=== PATIENT | male | born 1935 | race Caucasian/White ===

== ENCOUNTER 2021-09-30 09:56 | Observation (INO) | payer OTHER ==
--- OUTSIDE RECORDS SUMMARY | 2021-09-30 10:03 | XMS REPORT | Continuity of Care Document ---
:1935 Author Organization [facility] t Address [address] [place] [address] [address] [place] [address] Care Team Providers Name Role Phone Cristobal GAFFNEY, A Primary Care Physician ALIA Attending Clinician Unavailable ALIA Attending Clinician Unavailable Evan JAIN Attending Clinician Unavailable Eavn Jain MD Attending Clinician DYLON Attending Clinician Unavailable Kathy CHANEY Attending Clinician Unavailable (Tech), Emg/Ncv Testing Attending Clinician Unavailable MICHELLE Attending Clinician Unavailable ANNE MARIE Attending Clinician Unavailable ROLDAN MARTINI Admitting Clinician Unavailable Evan JAIN Admitting Clinician Unavailable Payers Payer Name Policy Type Policy Number Effective Date Expiration Date S ramakrishna [employer] MANAGED [id number] 2021 MEDICARE PPO-LUIS ARMANDO 00:00:00 [employer] MEDICARE HMO [id number] 2021 POS PPO 00:00:00 Problems Condition Condition Condition Status Onset Resolution Last Treating Co mments Source Name Details Category Date Date Treatment Clinician Date Lumbar Lumbar Disease Active 2020-09 [facility] radiculopa radiculopa -17 it y of thy thy 00:00: [address] Branch Neuropathy Neuropathy Disease Active 2020-09 U nivers involving involving 1-17 [place] both [place] extremit[place] 00 Me dical s s Branch Bilateral Bilateral Disease Active 2020-09 Uni vers leg leg 0-08 ity of weakness weakness 00:00: [place] [address] Medical Branch 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 0-08 [place] pain [place] COVID-19 COVID-19 Disease Active 2020-09 Unive rs vaccine vaccine 0-08 ity of series series 00:00: [place] declined declined 00 Medica l by patient by patient Br anch Arthritis Arthritis Disease Active 2020-09 Uni vers (knees, (knees, 0-06 ity of lumbar lumbar 00:00: [place] spine) spine) 00 Medical Branch Abnormal Abnormal Disease Active Unive rs gallbladde gallbladde 7-04 it y of r r 00:00: [place] ultrasound ultrasound 00 Md dical Branch Abnormal Abnormal Disease Active Unive rs liver liver 7-04 ity of function function 00:00: [place] test test 00 Medical Branch Chronic Chronic Disease Active Univers liver liver 7-04 ity of disease disease 00:00: [place] per per 00 Medical ultrasound ultrasound Br anch Anemia Anemia Disease Active Univers 6-14 ity of 00:00: [place] [facility] 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, mellitus, 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 00:00: [place] [facility] Essential Essential Disease Active Uni vers hypertensi hypertensi 5-28 it y of on on 00:00: [place] [facility] Hyperchole Hyperchole Disease Active U nivers sterolemia sterolemia -28 it y of 00:00: [place] [facility] BPH BPH Disease Active Univers (benign (benign - ity of prostatic prostatic 00:00: [place] hyperplasi hyperplasi 00 Md dical a) a) Branch Tremor Tremor Disease Active Univers 5-28 ity of 00:00: [place] 00 Medical Branch Status Status Disease Active Univers post post 5-28 ity of single single 00:00: [place] vessel vessel 00 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 Carotid Carotid Disease Active Univers artery artery 5-28 ity of disease disease 00:00: [place] [facility] HARISH on HARISH on Disease Active Univers CPAP CPAP - ity of 00:00: [place] [facility] History of History of Disease Active U nivers lung lung 5-28 ity of cancer cancer 00:00: [place] [facility] Seasonal Seasonal Disease Active Unive rs allergies allergies 5-28 ity of 00:00: [place] 00 Medical Branch Hearing Hearing Disease Active Univers loss loss 5-28 ity of 00:00: Medical Branch CKD CKD Disease Active Univers (chronic (chronic 5-28 ity of kidney kidney 00:00: [place] disease) disease) 00 Medica l Branch Short-term Short-term Disease Active U nivers memory memory 5-28 ity of loss loss 00:00: Medical Branch Former Former Disease Active Univers smoker smoker 5-28 ity of 00:00: Medical Branch Allergies, Adverse Reactions, Alerts Allergy Allergy Status Severity Reaction(s) Onset Inactive Treating Comm ents Source Name Type Date Date Clinician NSAIDS Allergy Active High 2020-[address] [facility] [address] (NON-RAGHU 1-30 [facility]: Medical ANTI-INF 00 Center LAMMATOR Y DRUG) Nsaids Propensi Active Other - See 2015-09 [facility] (Non-Raghu ty to comments 2-26 on with ity o f roidal adverse 00:00: other [place] Anti-Inf reaction 00 medicatio Med ical lammator s ns Branch y Drug) NSAIDS Drug Active Other-Cmnt 2015-09 Univer s (NON-RAGHU Class 2-26 ity of ROIDAL 00:00: [place] ANTI-INF 00 Medical LAMMATOR Branch Y DRUG) Social History Social Habit Start Date Stop Date Quantity Comments Source Exposure to Not sure [facility] SARS-CoV-2 [facility] (event) [place] Alcohol intake 2021-08-13 2021-08-13 Lifetime University of 00:00:00 00:00:00 non-drinker [facility] (finding) [place] Tobacco use and 2021-02-21 2021-02-21 Never used Universit y of exposure 00:00:00 00:00:00 [facility] Sex Ass[birth year] At [birth year] Universit y of 00:00:00 00:00:00 [facility] Smoking Status Start Date Stop Date Source Former smoker 2021-02-21 00:00:00 2021-02-21 00:00:00 Universi ty of [place] [facility] Medications Ordered Filled Start Stop Current Ordering Indication Dosage Frequency Signature Comments Components Source Medication Medication Date Date Medication? Clinician (SIG) Name Name insulin 2020-09 Yes [id number] 2U inject Univ ers lispro, -21 2-10 Units ity of human, 00:00: under the [place] (HUMALOG 00 skin 3 Medical U-100 (three) Branch INSULIN) times 100 unit/mL daily injection before meals. ACCORDING TO SLIDING SCALE: If BS = 150 or lower, give No Insulin, 151 - 200, give 2 units, 201 - 250, give 4 units, 251 - 300, give 6 units, 301 - 350, give 8 units, 351 - 400, give 10 units, if over 400-->tereza johnson MD insulin 2020-09 Yes [id number] 2U inject Univ ers lispro, -21 2-10 Units ity of human, 00:00: under the [place] (HUMALOG 00 skin 3 Medical U-100 (three) Branch INSULIN) times 100 unit/mL daily injection before meals. ACCORDING TO SLIDING SCALE: If BS = 150 or lower, give No Insulin, 151 - 200, give 2 units, 201 - 250, give 4 units, 251 - 300, give 6 units, 301 - 350, give 8 units, 351 - 400, give 10 units, if over 400-->tereza johnson MD HUMALOG 2020-09- No Univers U-100 2-13 12-21 ity of INSULIN 100 00:00: 00:00 [place] unit/mL 00 :00 Medical solution Branch insulin 2020-09- No 2U inject 2 Unive rs lispro, 11-09 12-21 Units ity of human, 100 00:00: 00:00 [place] the [place] unit/mL 00 :00 skin. Medical injection Branch azithromyci Yes [id number] Take 500 Univers n 9-28 mg PO day ity of (ZITHROMAX) 00:00: 1, then [place] as 250 mg 00 250 mg Medical tablet daily days Branch 2 to 5. fluticasone Yes [id number] 2{spray Use 2 Univers propionate 9-28 } Sprays in ity of 50 00:00: each [place] mcg/actuati 00 nostril Medic al on nasal daily. Branch spray benzonatate Yes [id number] 100mg Take 1 Univers 100 mg 9-28 capsule by ity of capsule 00:00: mouth 3 [place] 00 (three) Medical times Branch daily as needed for Cough. azithromyci 2020-0 Yes [id number] Take 500 Univers n 9-28 mg PO day ity of (ZITHROMAX) 00:00: 1, then [place] as 250 mg 00 250 mg Medical tablet daily days Branch 2 to 5. fluticasone 2020-0 Yes [id number] 2{spray Use 2 Univers propionate 9-28 } Sprays in ity of 50 00:00: each [place] mcg/actuati 00 nostril Medic al on nasal daily. Branch spray benzonatate 2020-0 Yes [id number] 100mg Take 1 Univers 100 mg 9-28 capsule by ity of capsule 00:00: mouth 3 [place] 00 (three) Medical times Branch daily as needed for Cough. azithromyci 2020-0 Yes [id number] Take 500 Univers n 9-28 mg PO day ity of (ZITHROMAX) 00:00: 1, then [place] as 250 mg 00 250 mg Medical tablet daily days Branch 2 to 5. fluticasone 2020-0 Yes [id number] 2{spray Use 2 Univers propionate 9-28 } Sprays in ity of 50 00:00: each [place] mcg/actuati 00 nostril Medic al on nasal daily. Branch spray benzonatate 2020-0 Yes [id number] 100mg Take 1 Univers 100 mg 9-28 capsule by ity of capsule 00:00: mouth 3 [place] 00 (three) Medical times Branch daily as needed for Cough. azithromyci 2020-0 Yes [id number] Take 500 Univers n 9-28 mg PO day ity of (ZITHROMAX) 00:00: 1, then [place] as 250 mg 00 250 mg Medical tablet daily days Branch 2 to 5. fluticasone 2020-0 Yes [id number] 2{spray Use 2 Univers propionate 9-28 } Sprays in ity of 50 00:00: each [place] mcg/actuati 00 nostril Medic al on nasal daily. Branch spray benzonatate 2020-0 Yes [id number] 100mg Take 1 Univers 100 mg 9-28 capsule by ity of capsule 00:00: mouth 3 [place] 00 (three) Medical times Branch daily as needed for Cough. azithromyci 2020-0 Yes [id number] Take 500 Univers n 9-28 mg PO day ity of (ZITHROMAX) 00:00: 1, then [place] as 250 mg 00 250 mg Medical tablet daily days Branch 2 to 5. fluticasone 2020-0 Yes [id number] 2{spray Use 2 Univers propionate 9-28 } Sprays in ity of 50 00:00: each [place] mcg/actuati 00 nostril Medic al on nasal daily. Branch spray benzonatate 2020-0 Yes [id number] 100mg Take 1 Univers 100 mg 9-28 capsule by ity of capsule 00:00: mouth 3 [place] 00 (three) Medical times Branch daily as needed for Cough. azithromyci 2020-0 Yes [id number] Take 500 Univers n 9-28 mg PO day ity of (ZITHROMAX) 00:00: 1, then [place] as 250 mg 00 250 mg Medical tablet daily days Branch 2 to 5. fluticasone 2020-0 Yes [id number] 2{spray Use 2 Univers propionate 9-28 } Sprays in ity of 50 00:00: each [place] mcg/actuati 00 nostril Medic al on nasal daily. Branch spray benzonatate 2020-0 Yes [id number] 100mg Take 1 Univers 100 mg 9-28 capsule by ity of capsule 00:00: mouth 3 [place] 00 (three) Medical times Branch daily as needed for Cough. azithromyci 2020-0 Yes [id number] Take 500 Univers n 9-28 mg PO day ity of (ZITHROMAX) 00:00: 1, then [place] as 250 mg 00 250 mg Medical tablet daily days Branch 2 to 5. fluticasone 2020-0 Yes [id number] 2{spray Use 2 Univers propionate 9-28 } Sprays in ity of 50 00:00: each [place] mcg/actuati 00 nostril Medic al on nasal daily. Branch spray benzonatate 2020-0 Yes [id number] 100mg Take 1 Univers 100 mg 9-28 capsule by ity of capsule 00:00: mouth 3 [place] 00 (three) Medical times Branch daily as needed for Cough. ipratropium 2020-0 Yes [id number] 1{spray Use 1-2 Univers 21 mcg 9-02 } Sprays in ity of (0.03 %) 00:00: each [place] nasal spray 00 nostril Medic al every 12 Branch (twelve) hours as needed for Runny nose. ipratropium Yes [id number] 1{spray Use 1-2 Univers 21 mcg 9-02 } Sprays in ity of (0.03 %) 00:00: each [place] nasal spray 00 nostril Medic al every 12 Branch (twelve) hours as needed for Runny nose. ipratropium Yes [id number] 1{spray Use 1-2 Univers 21 mcg 9-02 } Sprays in ity of (0.03 %) 00:00: each [place] nasal spray 00 nostril Medic al every 12 Branch (twelve) hours as needed for Runny nose. ipratropium Yes [id number] 1{spray Use 1-2 Univers 21 mcg 9-02 } Sprays in ity of (0.03 %) 00:00: each [place] nasal spray 00 nostril Medic al every 12 Branch (twelve) hours as needed for Runny nose. ipratropium Yes [id number] 1{spray Use 1-2 Univers 21 mcg 9-02 } Sprays in ity of (0.03 %) 00:00: each [place] nasal spray 00 nostril Medic al every 12 Branch (twelve) hours as needed for Runny nose. ipratropium Yes [id number] 1{spray Use 1-2 Univers 21 mcg 9-02 } Sprays in ity of (0.03 %) 00:00: each [place] nasal spray 00 nostril Medic al every 12 Branch (twelve) hours as needed for Runny nose. ipratropium Yes [id number] 1{spray Use 1-2 Univers 21 mcg 9-02 } Sprays in ity of (0.03 %) 00:00: each [place] nasal spray 00 nostril Medic al every 12 Branch (twelve) hours as needed for Runny nose. MULTIVITAMI Yes 1{tbl} Take 1 [place] N 50 PLUS 7-14 tablet by ity o f ORAL 13:47: mouth [place] [address] daily. Medical Branch lisinopriL Yes 10mg Take 10 mg U nivers 10 mg 7-14 by mouth ity of tablet 13:47: daily. [address] JANUVIA 50 0 Yes 50mg Take 50 mg U nivers mg tablet 7-14 by mouth ity of 13:47: daily. [address] tamsulosin Yes 1{capsu Take 1 [place] 0.4 mg 24 7-14 le} capsule by ity of hr capsule 13:47: mouth 2 [place] (two) Medical times Branch daily. finasteride Yes 5mg Take 5 mg U nivers 5 mg tablet 7-14 by mouth ity of 13:47: daily. [address] ascorbic Yes 500mg Take 500 Univ ers acid, 7-14 mg by ity of vitamin C, 13:47: mouth [place] (VITAMIN C) 18 daily. Medica l 500 mg Branch tablet aspirin 325 Yes 325mg Take 325 U nivers mg tablet 7-14 mg by ity of 13:47: mouth [place] 18 daily. [facility] VITAMIN D3 Yes Take by Uni vers 10 mcg (400 7-14 mouth ity of unit) 13:47: daily. [address] Zinc 50 mg Yes Take by Uni vers Tab 7-14 mouth ity of 13:47: daily. [address] TURMERIC Yes 2000mg Take 2,000 U nivers ORAL 7-14 mg by ity of 13:47: mouth [place] 18 daily. [facility] Branch PROBIOTIC Yes Take by Univ ers ORAL 7-14 mouth ity of 13:47: daily. [address] PRESERVISIO Yes Take by Un [place] N AREDS-2 7-14 mouth ity of ORAL 13:47: daily. [address] MULTIVITAMI Yes 1{tbl} Take 1 Un [place] N 50 PLUS 7-14 tablet by ity o f ORAL 13:47: mouth [place] 18 daily. [facility] Branch lisinopriL Yes 10mg Take 10 mg U nivers 10 mg 7-14 by mouth ity of tablet 13:47: daily. [address] JANUVIA 50 Yes 50mg Take 50 mg U nivers mg tablet 7-14 by mouth ity of 13:47: daily. [address] tamsulosin Yes 1{capsu Take 1 [place] 0.4 mg 24 7-14 le} capsule by ity of hr capsule 13:47: mouth 2 [place] (two) Medical times Branch daily. finasteride Yes 5mg Take 5 mg U nivers 5 mg tablet 7-14 by mouth ity of 13:47: daily. [address] ascorbic Yes 500mg Take 500 Univ ers acid, 7-14 mg by ity of vitamin C, 13:47: mouth [place] (VITAMIN C) 18 daily. Medica l 500 mg Branch tablet aspirin 325 Yes 325mg Take 325 U nivers mg tablet 7-14 mg by ity of 13:47: mouth [place] 18 daily. [facility] Branch VITAMIN D3 Yes Take by Uni vers 10 mcg (400 7-14 mouth ity of unit) 13:47: daily. [address] Zinc 50 mg Yes Take by Uni vers Tab 7-14 mouth ity of 13:47: daily. [address] TURMERIC Yes 2000mg Take 2,000 U nivers ORAL 7-14 mg by ity of 13:47: mouth [place] 18 daily. [facility] PROBIOTIC Yes Take by Univ ers ORAL 7-14 mouth ity of 13:47: daily. [address] PRESERVISIO Yes Take by Un [place] N AREDS-2 7-14 mouth ity of ORAL 13:47: daily. [address] MULTIVITAMI Yes 1{tbl} Take 1 Un [place] N 50 PLUS 7-14 tablet by ity o f ORAL 13:47: mouth [place] 18 daily. [facility] lisinopriL Yes 10mg Take 10 mg U nivers 10 mg 7-14 by mouth ity of tablet 13:47: daily. [address] JANUVIA 50 Yes 50mg Take 50 mg U nivers mg tablet 7-14 by mouth ity of 13:47: daily. [address] tamsulosin Yes 1{capsu Take 1 [place] 0.4 mg 24 7-14 le} capsule by ity of hr capsule 13:47: mouth 2 [place] (two) Medical times Branch daily. finasteride Yes 5mg Take 5 mg U nivers 5 mg tablet 7-14 by mouth ity of 13:47: daily. [address] ascorbic Yes 500mg Take 500 Univ ers acid, 7-14 mg by ity of vitamin C, 13:47: mouth [place] (VITAMIN C) 18 daily. Medica l 500 mg Branch tablet aspirin 325 Yes 325mg Take 325 U nivers mg tablet 7-14 mg by ity of 13:47: mouth [place] 18 daily. [facility] Branch VITAMIN D3 Yes Take by Uni vers 10 mcg (400 7-14 mouth ity of unit) 13:47: daily. [facility] 18 [facility] Branch Zinc 50 mg Yes Take by Uni vers Tab 7-14 mouth ity of 13:47: daily. [address] Branch TURMERIC Yes 2000mg Take 2,000 U nivers ORAL 7-14 mg by ity of 13:47: mouth [place] 18 daily. [facility] Branch PROBIOTIC Yes Take by Univ ers ORAL 7-14 mouth ity of 13:47: daily. [address] PRESERVISIO Yes Take by Un [place] N AREDS-2 7-14 mouth ity of ORAL 13:47: daily. [address] MULTIVITAMI Yes 1{tbl} Take 1 Un [place] N 50 PLUS 7-14 tablet by ity o f ORAL 13:47: mouth [place] 18 daily. [facility] Branch lisinopriL Yes 10mg Take 10 mg U nivers 10 mg 7-14 by mouth ity of tablet 13:47: daily. [address] JANUVIA 50 Yes 50mg Take 50 mg U nivers mg tablet 7-14 by mouth ity of 13:47: daily. [address] tamsulosin Yes 1{capsu Take 1 [place] 0.4 mg 24 7-14 le} capsule by ity of hr capsule 13:47: mouth 2 [place] (two) Medical times Branch daily. finasteride Yes 5mg Take 5 mg U nivers 5 mg tablet 7-14 by mouth ity of 13:47: daily. [address] ascorbic Yes 500mg Take 500 Univ ers acid, 7-14 mg by ity of vitamin C, 13:47: mouth [place] (VITAMIN C) 18 daily. Medica l 500 mg Branch tablet aspirin 325 Yes 325mg Take 325 U nivers mg tablet 7-14 mg by ity of 13:47: mouth [place] 18 daily. Medical Branch VITAMIN D3 Yes Take by Uni vers 10 mcg (400 7-14 mouth ity of unit) 13:47: daily. [place] [address] Medical Branch Zinc 50 mg Yes Take by Uni vers Tab 7-14 mouth ity of 13:47: daily. [place] [address] Medical Branch TURMERIC Yes 2000mg Take 2,000 U nivers ORAL 7-14 mg by ity of 13:47: mouth [place] 18 daily. Medical Branch PROBIOTIC Yes Take by Univ ers ORAL 7-14 mouth ity of 13:47: daily. [place] [address] Medical Branch PRESERVISIO Yes Take by Un [place] N AREDS-2 7-14 mouth ity of ORAL 13:47: daily. [place] [address] Medical Branch MULTIVITAMI Yes 1{tbl} Take 1 Un [place] N 50 PLUS 7-14 tablet by ity o f ORAL 13:47: mouth [place] 18 daily. [facility] Branch lisinopriL Yes 10mg Take 10 mg U nivers 10 mg 7-14 by mouth ity of tablet 13:47: daily. [place] [address] Medical Branch JANUVIA 50 Yes 50mg Take 50 mg U nivers mg tablet 7-14 by mouth ity of 13:47: daily. [address] Branch tamsulosin Yes 1{capsu Take 1 [place] 0.4 mg 24 7-14 le} capsule by ity of hr capsule 13:47: mouth 2 [place] (two) Medical times Branch daily. finasteride Yes 5mg Take 5 mg U nivers 5 mg tablet 7-14 by mouth ity of 13:47: daily. [place] [address] Medical Branch ascorbic Yes 500mg Take 500 Univ ers acid, 7-14 mg by ity of vitamin C, 13:47: mouth [place] (VITAMIN C) 18 daily. Medica l 500 mg Branch tablet aspirin 325 Yes 325mg Take 325 U nivers mg tablet 7-14 mg by ity of 13:47: mouth [place] 18 daily. Medical Branch VITAMIN D3 Yes Take by Uni vers 10 mcg (400 7-14 mouth ity of unit) 13:47: daily. [facility] 18 [facility] Branch Zinc 50 mg Yes Take by Uni vers Tab 7-14 mouth ity of 13:47: daily. [address] Branch TURMERIC Yes 2000mg Take 2,000 U nivers ORAL 7-14 mg by ity of 13:47: mouth [place] 18 daily. Medical Branch PROBIOTIC Yes Take by Univ ers ORAL 7-14 mouth ity of 13:47: daily. [address] Branch PRESERVISIO Yes Take by Un [place] N AREDS-2 7-14 mouth ity of ORAL 13:47: daily. [address] Branch MULTIVITAMI Yes 1{tbl} Take 1 [place] N 50 PLUS 7-14 tablet by ity o f ORAL 13:47: mouth [place] 18 daily. [facility] Branch lisinopriL Yes 10mg Take 10 mg U nivers 10 mg 7-14 by mouth ity of tablet 13:47: daily. [address] JANUVIA 50 Yes 50mg Take 50 mg U nivers mg tablet 7-14 by mouth ity of 13:47: daily. [address] Branch tamsulosin Yes 1{capsu Take 1 [place] 0.4 mg 24 7-14 le} capsule by ity of hr capsule 13:47: mouth 2 [place] (two) Medical times Branch daily. finasteride Yes 5mg Take 5 mg U nivers 5 mg tablet 7-14 by mouth ity of 13:47: daily. [address] Branch ascorbic Yes 500mg Take 500 Univ ers acid, 7-14 mg by ity of vitamin C, 13:47: mouth [place] (VITAMIN C) 18 daily. Medica l 500 mg Branch tablet aspirin 325 Yes 325mg Take 325 U nivers mg tablet 7-14 mg by ity of 13:47: mouth [place] 18 daily. [facility] Branch VITAMIN D3 Yes Take by Uni vers 10 mcg (400 7-14 mouth ity of unit) 13:47: daily. [address] Branch Zinc 50 mg Yes Take by Uni vers Tab 7-14 mouth ity of 13:47: daily. [place] 18 Medical Branch TURMERIC Yes 2000mg Take 2,000 U nivers ORAL 7-14 mg by ity of 13:47: mouth [place] 18 daily. Medical Branch PROBIOTIC Yes Take by Univ ers ORAL 7-14 mouth ity of 13:47: daily. [place] [address] Medical Branch PRESERVISIO Yes Take by Un [place] N AREDS-2 7-14 mouth ity of ORAL 13:47: daily. [place] [address] Medical Branch MULTIVITAMI Yes 1{tbl} Take 1 [facility] [place] N 50 PLUS 7-14 tablet by ity o f ORAL 13:47: mouth [place] 18 daily. Medical Branch lisinopriL Yes 10mg Take 10 mg U nivers 10 mg 7-14 by mouth ity of tablet 13:47: daily. [place] [address] Medical Branch JANUVIA 50 Yes 50mg Take 50 mg U nivers mg tablet 7-14 by mouth ity of 13:47: daily. [place] [address] Medical Branch tamsulosin Yes 1{capsu Take 1 [place] 0.4 mg 24 7-14 le} capsule by ity of hr capsule 13:47: mouth 2 [place] (two) Medical times Branch daily. finasteride Yes 5mg Take 5 mg U nivers 5 mg tablet 7-14 by mouth ity of 13:47: daily. [address] Branch ascorbic Yes 500mg Take 500 Univ ers acid, 7-14 mg by ity of vitamin C, 13:47: mouth [place] (VITAMIN C) 18 daily. Medica l 500 mg Branch tablet aspirin 325 Yes 325mg Take 325 U nivers mg tablet 7-14 mg by ity of 13:47: mouth [place] 18 daily. Medical Branch VITAMIN D3 Yes Take by Uni vers 10 mcg (400 7-14 mouth ity of unit) 13:47: daily. [address] Branch Zinc 50 mg Yes Take by Uni vers Tab 7-14 mouth ity of 13:47: daily. [place] [address] Medical Branch TURMERIC Yes 2000mg Take 2,000 U nivers ORAL 7-14 mg by ity of 13:47: mouth [place] 18 daily. Medical Branch PROBIOTIC Yes Take by Univ ers ORAL 7-14 mouth ity of 13:47: daily. Medical Branch PRESERVISIO Yes Take by [facility] [place] N AREDS-2 7-14 mouth ity of ORAL 13:47: daily. [place] [facility] ezetimibe Yes [id number] 10mg Take 1 [place] (ZETIA) 10 5-28 tablet by ity of mg tablet 00:00: [place] bed[place]. Medical Branch ezetimibe Yes [id number] 10mg Take 1 [place] (ZETIA) 10 5-28 tablet by ity of mg tablet 00:00: [place] 00 bed[place]. Medical Branch ezetimibe Yes [id number] 10mg Take 1 [place] (ZETIA) 10 5-28 tablet by ity of mg tablet 00:00: [place] 00 bed[place]. Medical Branch ezetimibe Yes [id number] 10mg Take 1 [place] (ZETIA) 10 5-28 tablet by ity of mg tablet 00:00: [place] 00 bed[place]. Medical Branch ezetimibe Yes [id number] 10mg Take 1 [place] (ZETIA) 10 5-28 tablet by ity of mg tablet 00:00: mouth [place] 00 bed[place]. Medical Branch ezetimibe Yes [id number] 10mg Take 1 [place] (ZETIA) 10 5-28 tablet by ity of mg tablet 00:00: [place] 00 bed[place]. Medical Branch ezetimibe Yes [id number] 10mg Take 1 [place] (ZETIA) 10 5-28 tablet by ity of mg tablet 00:00: [place] bed[place]. Medical Branch primidone 2015-09 Yes 100mg Take 2 Unive rs 50 mg 2-27 tablets by ity of tablet 00:00: mouth 3 (three) Medical times Branch daily. simvastatin 2015-09 Yes 40mg Take 1 Univ ers 40 mg 2-27 tablet by ity of tablet 00:00: mouth at [place] 00 bedtime. Medical Branch primidone 2015-09 Yes 100mg Take 2 Unive rs 50 mg 2-27 tablets by ity of tablet 00:00: mouth 3 (three) Medical times Branch daily. simvastatin 2015-09 Yes 40mg Take 1 Univ ers 40 mg 2-27 tablet by ity of tablet 00:00: mouth at [place] 00 bedtime. Medical Branch primidone 2015-09 Yes 100mg Take 2 Unive rs 50 mg 2-27 tablets by ity of tablet 00:00: mouth 3 (three) Medical times Branch daily. simvastatin 2015-09 Yes 40mg Take 1 Univ ers 40 mg 2-27 tablet by ity of tablet 00:00: mouth at [place] 00 bedtime. Medical Branch primidone 2015-09 Yes 100mg Take 2 Unive rs 50 mg 2-27 tablets by ity of tablet 00:00: mouth 3 (three) Medical times Branch daily. simvastatin 2015-09 Yes 40mg Take 1 Univ ers 40 mg 2-27 tablet by ity of tablet 00:00: mouth at [place] 00 bedtime. Medical Branch primidone 2015-09 Yes 100mg Take 2 Unive rs 50 mg 2-27 tablets by ity of tablet 00:00: mouth 3 (three) Medical times Branch daily. simvastatin 2015-09 Yes 40mg Take 1 Univ ers 40 mg 2-27 tablet by ity of tablet 00:00: mouth at [place] 00 bedtime. Medical Branch primidone 2015-09 Yes 100mg Take 2 Unive rs 50 mg 2-27 tablets by ity of tablet 00:00: mouth 3 (three) Medical times Branch daily. simvastatin 2015-09 Yes 40mg Take 1 Univ ers 40 mg 2-27 tablet by ity of tablet 00:00: mouth at [place] 00 bedtime. Medical Branch primidone 2015-09 Yes 100mg Take 2 Unive rs 50 mg 2-27 tablets by ity of tablet 00:00: mouth 3 (three) Medical times Branch daily. simvastatin 2015-09 Yes 40mg Take 1 Univ ers 40 mg 2-27 tablet by ity of tablet 00:00: mouth at [place] 00 bedtime. Medical Branch Immunizations Ordered Filled Immunization Date Status Comments [facility] e Immunization Name Name Influenza Virus 2018-06-13 Completed Universit y of Vaccine 00:00:00 [facility] Influenza Virus 2018-06-13 Completed Universit y of Vaccine 00:00:00 [facility] Influenza Virus 2018-06-13 Completed Universit y of Vaccine 00:00:00 [facility] Influenza Virus 2018-06-13 Completed Universit y of Vaccine 00:00:00 [facility] Influenza Virus 2018-06-13 Completed Universit y of Vaccine 00:00:00 [facility] Influenza Virus 2018-06-13 Completed Universit y of Vaccine 00:00:00 [facility] Influenza Virus 2018-06-13 Completed Universit y of Vaccine 00:00:00 [facility] Pneumococcal 13 2016-09-22 Completed Universit y of Conjugate, PCV13 00:00:00 [place] Me dical (Prevnar 13) Branch Influenza High Dose 2016-09-22 Completed Unive rsity of 00:00:00 [facility] Pneumococcal 13 2016-09-22 Completed Universit y of Conjugate, PCV13 00:00:00 [place] Me [facility]ical (Prevnar 13) Branch Influenza High Dose 2016-09-22 Completed Unive rsity of 00:00:00 [facility] Pneumococcal 13 2016-09-22 Completed Universit y of Conjugate, PCV13 00:00:00 [place] [facility] (Prevnar 13) Branch Influenza High Dose 2016-09-22 Completed Unive rsity of 00:00:00 [facility] Pneumococcal 13 2016-09-22 Completed Universit y of Conjugate, PCV13 00:00:00 [place] Me [facility]ical (Prevnar 13) Branch Influenza High Dose 2016-09-22 Completed Unive rsity of 00:00:00 [facility] Pneumococcal 13 2016-09-22 Completed Universit y of Conjugate, PCV13 00:00:00 [place] [facility] (Prevnar 13) Branch Influenza High Dose 2016-09-22 Completed Unive rsity of 00:00:00 [facility] Pneumococcal 13 2016-09-22 Completed Universit y of Conjugate, PCV13 00:00:00 [place] Me [facility] (Prevnar 13) Branch Influenza High Dose 2016-09-22 Completed Unive rsity of 00:00:00 [facility] Pneumococcal 13 2016-09-22 Completed Universit y of Conjugate, PCV13 00:00:00 [place] Me [facility]ical (Prevnar 13) Branch Influenza High Dose 2016-09-22 Completed Unive rsity of 00:00:00 [facility] Vital Signs Vital Name Observation Time Observation Value Comments Source HEIGHT 2021-09-02 10:25:00 175.3 cm WEIGHT 2021-09-02 10:25:00 75.297 kg HEIGHT 2021-09-02 10:25:00 175.3 cm WEIGHT 2021-09-02 10:25:00 75.297 kg Systolic blood 2021-06-24 19:19:00 159 mm[facility]Hg[facility] pressure [facility] Diastolic blood 2021-06-24 19:19:00 62 mm[Hg] [facility] Heart rate 2021-06-24 19:19:00 82 /min [facility] Body height 2021-06-24 19:18:00 177.8 cm [facility] Body weight 2021-06-24 19:18:00 77.837 kg [facility] BMI 2021-06-24 19:18:00 24.62 kg/m2 [facility] Oxygen saturation 2021-06-24 19:18:00 97 /min [facility] in Arterial blood [facility] Br anch by Pulse oximetry Procedures Procedure Date / Time Performing Clinician Source Performed EMG/NCV 2021-08-11 17:50:00 Mychal Jain [facility] COVID-19 (MOLECULAR 2021-06-24 19:31:[address] [facility] NUCLEIC ACID AMPLIFICATION) LAB ONLY COVID 2021-06-24 19:31:00 Mychal Jain [facility] Encounters Start End Encounter Admission Attending Care Care Encounter Source Date/Time Date/Time Type Type Clinicians Facility Department ID 2021-10-09 2021-10-09 Outpatient R CAITY ROJO [facility] [id number] Univers 10:30:00 10:30:00 CAITY ROJO [id number] i ty [facility] 2021-10-07 2021-10-07 Outpatient R [facility] [id number] Univers 14:30:00 14:30:00 MYCHAL [id number] ity o f [facility] 2021-10-07 2021-10-07 Outpatient R [facility] [id number] Univers 14:30:00 14:30:00 WONDIFUL ity o f [facility] 2021-09-16 2021-09-16 Telephone [facility] [id number] Univers 00:00:00 00:00:00 Wondiful A HEALTH [id number] ity of [place] [id number] Dylan as HUA?BLEA [id number] [address] OFFICE [facility] 2021-09-11 2021-09-11 Telephone [facility] [id number] Univers 00:00:00 00:00:00 Wondiful A HEALTH [id number] ity of [place] [id number] Dylan as HUA?BLEA [id number] [address] 2021-09-09 2021-09-09 Outpatient [facility] SLE [id number] SLE 08:12:00 08:12:00 2021-09-09 2021-09-09 Telephone [facility] [id number] Univers 00:00:00 00:00:00 Wondiful A HEALTH [id number] ity of [place] [id number] Dylan as HUA?BLEA [id number] [address] 2021-08-26 2021-09-08 [facility] ICU [id number] SLE 23:19:00 17:30:00 IRENE 2021-09-08 2021-09-08 Outpatient R CAITY ROJO [facility] [id number] Univers 00:00:00 00:00:00 CAITY ROJO [id number] i [facility] 2021-08-28 2021-08-28 Telephone [facility] [id number] Univers 00:00:00 00:00:00 Wondiful A HEALTH [id number] ity of [place] [id number] Dylan as HUA?BLEA [id number] [address] OFFICE [facility] 2021-08-27 2021-08-27 Outpatient [facility] [id number] [address] [place] [address] 00:00:00 23:59:00 [facility] 2021-08-26 2021-08-26 Outpatient R [facility] [id number] Univers 13:00:00 13:00:00 WONDIFUL [id number] ity o f [facility] 2021-08-26 2021-08-26 Outpatient R [facility] [id number] Univers 13:00:00 13:00:00 WONDIFUL ity o [facility] 2021-08-13 2021-08-13 [facility] [id number] Univers 00:00:00 00:00:00 Management Wondiful A HEALTH [id number] ity of [place] [id number] Dylan as HUA?BLEA [id number] [address] MEDICAL OFFICE [facility] 2021-08-11 2021-08-11 [facility] [id number] Univers 10:19:32 23:59:00 WONDIFUL ity o [facility] 2021-08-11 2021-08-11 [facility] Mychal Jain [facility] 1.2.8 40.114 [id number] Univers 10:19:32 23:59:00 Encounter (Tech), Hola-Db Emg/Ncv Testing HEALT H [id number] ity of [place] [id number] Dylan as HUA?BLEA [id number] [facility] [address] MEDICAL OFFICE BUILDING 2021-08-11 2021-08-11 Outpatient R (TECH) [facility] [id number] Univers 10:30:00 10:30:00 ANG-DB [id number] ity of [facility] 2021-06-27 2021-06-27 [facility] [id number] Univers 10:00:00 10:00:00 WONDIFUL [id number] ity o [facility] 2021-06-27 2021-06-27 [facility] [id number] Univers 10:00:00 10:00:00 WONDIFUL ity o [facility] 2021-06-24 2021-06-24 Office [facility] [id number] Univers 13:57:52 15:16:30 [facility] 350.1.13.10 itagata castillo [place] [id number] Dylan as Hua?Blea [id number] [address] Medical Office Building 2021-06-24 2021-06-24 Outpatient R [facility] [id number] Univers 14:15:00 14:15:00 WONDIFUL [id number] ity o f [facility] 2021-06-24 2021-06-24 Outpatient R [facility] [id number] Univers 14:15:00 14:15:00 WONDIFUL ity o f [facility] 2021-06-05 2021-06-05 Outpatient R CAITY ROJO [facility] [id number] Univers 10:00:00 10:00:00 CAITY ROJO [id number] i ty of [facility] 2021-06-05 2021-06-05 Outpatient R CAITY ROJO [facility] [id number] Univers 09:50:00 09:50:00 CAITY ROJO i ty of [facility] 2021-05-29 2021-05-29 Outpatient R CAITY ROJO [facility] [id number] Univers 11:30:00 11:30:00 CAITY ROJO [id number] i ty of [facility] 2021-04-17 2021-04-17 Outpatient R MICHELLE [facility] [id number] Univers 14:00:00 14:00:00 XOCHITL [id number] ity [facility] 2021-04-17 2021-04-17 Outpatient R MICHELLE [facility] [id number] Univers 14:00:00 14:00:00 XOCHITL [facility] 2021-04-09 2021-04-09 Outpatient R ANNE MARIE [facility] [id number] Univers 13:40:00 13:40:00 EZIO [id number] ity o f [facility] 2021-04-09 2021-04-09 Outpatient R ANNE MARIE [facility] [id number] Univers 13:40:00 13:40:00 EZIO ity o f [facility] 2021-03-25 2021-03-25 Outpatient R [facility] [id number] Univers 15:00:00 15:00:00 WONDIFUL [id number] ity o f [facility] 2021-03-25 2021-03-25 Outpatient R [facility] [id number] Univers 00:00:00 00:00:00 WONDIFUL ity o f [facility] 2021-03-11 2021-03-11 Outpatient R [facility] [id number] Univers 10:00:00 10:00:00 [id number] [facility] 2021-03-11 2021-03-11 Outpatient R [facility] [id number] Univers 10:00:00 10:00:00 ity [facility] 2021-03-07 2021-03-07 Outpatient R CAITY ROJO [facility] [id number] Univers 00:00:00 00:00:00 CAITY ROJO [id number] i ty of [facility] 2021-03-07 2021-03-07 Outpatient R CAITY ROJO [facility] [id number] Univers 00:00:00 00:00:00 CAITY ROJO i ty of [facility] 2021-02-28 2021-02-28 Outpatient R CAITY ROJO [facility] [id number] Univers 14:30:00 14:30:00 CAITY ROJO [id number] i ty of [facility] 2021-02-28 2021-02-28 Outpatient R CAITY ROJO [facility] [id number] Univers 14:30:00 14:30:00 CAITY ROJO i ty of [facility] 2021-02-26 2021-02-26 Outpatient [facility] [id number] Univers 10:20:00 10:20:00 [id number] ity [facility] 2021-02-26 2021-02-26 Outpatient R [facility] [id number] Univers 10:20:00 10:20:00 ity of [facility] 2021-02-21 2021-02-21 Outpatient R [facility] [id number] [facility] 13:30:00 13:30:00 WONDIFUL shukri caity marie [facility] Results Test Description Test Time Test Comments Results Result Comments Source POCT-GLUCOSE METER 2021-09-08 12:27:00 Test Item Value Reference Range Interpretation Comme nts POC-GLUCOSE METER (BEAKER) 254 mg/dL 70-110 H : [facility] [facility] (test code = 1538) [facility] X, [address]: Quality Control Lab Tech/Techni trinh ID = [id number] for RAHMAN, SERKAL EM POCT-GLUCOSE [id number] 08:48:19 Test Item Value Reference Range Interpretation Comments POC-GLUCOSE METER 181 mg/dL 70-110 H : [facility] (BEAKER) (test code = [facility], 1538) 22888: Quality Control Lab Tech/Techni trinh ID = [id number] for IB RAHIM, SERKALEM POCT-GLUCOSE [id number] 22:03:43 Test Item Value Reference Range Interpretation Comments POC-GLUCOSE METER 323 mg/dL 70-110 H : TESTED A [facility] ERC 6720 (BEAKER) (test code = [facility], 1538) 15135: Quality Control Lab Tech/Techni trinh ID = [id number] for Cecilia rahulMaribel mckenna BASIC METABOLIC [id number] 18:28:59 Test Item Value Reference Range Interpretation Comments SODIUM (BEAKER) 136 meq/L 136-145 (test code = 381) POTASSIUM (BEAKER) 5.0 meq/L 3.5-5.1 (test code = 379) CHLORIDE (BEAKER) 103 meq/L 98-107 (test code = 382) CO2 (BEAKER) (test 25 meq/L 22-29 code = 355) BLOOD UREA NITROGEN 42 mg/dL 7-21 H (BEAKER) (test code = 354) CREATININE (BEAKER) 1.33 mg/dL 0.57-1.25 H (test code = 358) GLUCOSE RANDOM 164 mg/dL 70-105 H (BEAKER) (test code = 652) CALCIUM (BEAKER) 8.9 mg/dL 8.4-10.2 (test code = 697) EGFR (BEAKER) (test 51 mL/min/1.73 ESTIMA DIGNA GFR IS code = 1092) sq m NOT ACCURATE CREATININE CLEARANCE IN PREDICTING GLOMERULAR FILTRATION RATE . ESTIMATED GFR I S NOT APPLICABLE FOR DIALYSIS PATIEN TS. Quality Control Lab Tech ID - DBPOCT-GLUCOSE [id number] 17:55:42 Test Item Value Reference Range Interpretation Comments POC-GLUCOSE METER 163 mg/dL 70-110 H : TESTED A T [facility] 6720 (BECARL) (test code = [facility], 1538) 89617: Quality Control Lab Tech/Techni trinh ID = [id number] for LATASHA SEQUEIRA POCT-GLUCOSE [id number] 11:46:31 Test Item Value Reference Range Interpretation Comments POC-GLUCOSE METER 262 mg/dL 70-110 H : TESTED A T [facility] 6720 (KRUPA) (test code = [facility], 1538) 82874: Quality Control Lab Tech/Techni trinh ID = [id number] for LAURA TRINIDAD SARS-COV2/RT-PCR ([facility])2021-09-07 10:16:19 Test Item Value Reference Range Interpretation Comments SARS-COV2/RT-PCR (test Negative Not Detected, Negative, code = 2749380) See external report for linked test SARS-COV-2 PERFORMING LAB [facility] (test code = 7366187) Negative result for this test determines that SARS-CoV-2 RNA was not present in the specimen above the Limit of Detection (LOD). However, Negative results do not preclude SARS-CoV-2 infection and should not be used as the sole basis for treatment or patient management decisions. Negative results mustbe combined with clinical observations, patient history, and epidemiological information. A false negative result may occur if a specimen is improperly collected, transported or handled. A false negative result should be considered if patient's recent exposures or clinical presentation indicate that COVID-19 (SARS-CoV-2) is likely and diagnostic tests for other causes of illness are negative. Re-testing should be considered in cases of suspected false negatives.The limit of detection for this assay is 800 copies/mL.This SARS CoV-2 test is a real-time RT-PCR test intended for the qualitative detection of nucleic acid from SARS-CoV-2 in a nasopharyngeal swab specimen collected from individuals suspected of COVID-19 by their healthcare provider.This test has not been Food and Drug Administration (FDA) cleared or approved. This is a modified version of an approved Emergency Use Authorization (EUA) and is in the process of review by the FDA. Once authorized by the FDA, the issued EUA will be effective until the declaration that circumstances exist justifying the authorization of the emergency use of in vitro diagnostic tests for detection and/or diagnosis of COVID-19 is terminated under Section 564(b)(2) of the Act or the EUA is revoked under Section 564(g) of the Act.Fact Sheet for Healthcare Providers:https://www.[employer] [facility]/sites/default/files/product/documents/Fact_Shee k_UA_Xinfhnpna_Qbdw_NTER-GhH-8.pdfFact Sheet for Healthcare Patients:https://www.[employer] [facility]/sites/default/files/product/ documents/Nbvw_Tgxew_Bftykevj_Twpq_NSUX-UzJ-1.pdfPerforming Laboratory:[facility] [facility].[place], [place] [address]ZEUM-STASBGG METER 2021-09-07 09:23:56 Test Item Value Reference Range Interpretation Comments POC-GLUCOSE METER 185 mg/dL 70-110 H : TESTED A T [facility] 6720 (BEAKER) (test code [facility], = 1538) 30706: Quality Control Lab Tech/Techni trinh ID = [id number] for Sowily varmaet (contract), Pur damion POCT-GLUCOSE [id number] 22:18:33 Test Item Value Reference Range Interpretation Comments POC-GLUCOSE METER 176 mg/dL 70-110 H : TESTED A T [facility] 6720 (BEAKER) (test code = [facility], 1538) 79001: Quality Control Lab Tech/Techni trinh ID = [id number] for An familia, Khari POCT-GLUCOSE [id number] 17:48:25 Test Item Value Reference Range Interpretation Comments POC-GLUCOSE METER 320 mg/dL 70-110 H : TESTED A T [facility] 6720 (BEAKER) (test code = [facility], 1538) 92614: Quality Control Lab Tech/Techni trinh ID = [id number] for IB RAHIM, SERGINALEM URINALYSIS W/ REFLEX URINE [id number] 14:21:32 Test Item Value Reference Range Interpretation Comments COLOR (BEAKER) (test code = 470) Light Yellow CLARITY (BEAKER) (test code = Clear 469) SPECIFIC GRAVITY UA (BEAKER) 1.015 1.001-1.035 (test code = 468) PH UA (BEAKER) (test code = 467) 6.0 5.0-8.0 PROTEIN UA (BEAKER) (test code = Negative Negative 464) GLUCOSE UA (BEAKER) (test code = Negative Negative 365) KETONES UA (BEAKER) (test code = Negative Negative 371) BILIRUBIN UA (BEAKER) (test code Negative Negative = 462) BLOOD UA (BEAKER) (test code = Negative Negative 461) NITRITE UA (BEAKER) (test code = Negative Negative 465) LEUKOCYTE ESTERASE UA (BEAKER) Negative Negative (test code = 466) UROBILINOGEN UA (BEAKER) (test 0.2 mg/dL 0.2-1.0 code = 463) RBC UA (BEAKER) (test code = < /HPF 519) WBC UA (BEAKER) (test code = 0 /HPF 520) BACTERIA (BEAKER) (test code = None Seen 517) CRYSTALS, URINE (BEAKER) (test None Seen code = 1521) SOURCE(BEAKER) (test code = 2795) Quality Control Lab Tech ID - [auto]Quality Control Lab Tech ID - techPOCT-GLUCOSE [id number] 12:44:48 Test Item Value Reference Range Interpretation Comments POC-GLUCOSE METER 326 mg/dL 70-110 H : TESTED A T [facility] 6720 (BEAKER) (test code = [facility], 1538) 95358: Quality Control Lab Tech/Techni trinh ID = [id number] for IB MARKM, SERGINALEM POCT-GLUCOSE [id number] 08:22:59 Test Item Value Reference Range Interpretation Comments POC-GLUCOSE METER 190 mg/dL 70-110 H : TESTED A T [facility] 6720 (BEAKER) (test code = [facility], 1538) 83885: Quality Control Lab Tech/Techni trinh ID = [id number] for IB MARKM, SERKALEM BASIC METABOLIC [id number] 05:51:42 Test Item Value Reference Range Interpretation Comments SODIUM (BEAKER) 136 meq/L 136-145 (test code = 381) POTASSIUM (BEAKER) 5.3 meq/L 3.5-5.1 H (test code = 379) CHLORIDE (BEAKER) 102 meq/L 98-107 (test code = 382) CO2 (BEAKER) (test 24 meq/L 22-29 code = 355) BLOOD UREA NITROGEN 54 mg/dL 7-21 H (BEAKER) (test code = 354) CREATININE (BEAKER) 1.43 mg/dL 0.57-1.25 H (test code = 358) GLUCOSE RANDOM 217 mg/dL 70-105 H (BEAKER) (test code = 652) CALCIUM (BEAKER) 8.8 mg/dL 8.4-10.2 (test code = 697) EGFR (BEAKER) (test 47 mL/min/1.73 ESTIMA DIGNA GFR IS code = 1092) sq m NOT ACCURATE CREATININE CLEARANCE IN PREDICTING GLOMERULAR FILTRATION RATE . ESTIMATED GFR I S NOT APPLICABLE FOR DIALYSIS PATIEN TS. Quality Control Lab Tech ID - DBPOCT-GLUCOSE [id number] 21:56:28 Test Item Value Reference Range Interpretation Comments POC-GLUCOSE METER 217 mg/dL 70-110 H : TESTED A T [facility] 6720 (BEAKER) (test code = [facility], 1538) 05873: Quality Control Lab Tech/Techni trinh ID = [id number] for Kelle Montes POCT-GLUCOSE [id number] 17:53:22 Test Item Value Reference Range Interpretation Comments POC-GLUCOSE METER 319 mg/dL 70-110 H : TESTED A T [facility] 6720 (BEAKER) (test code = [facility], 1538) 97823: Quality Control Lab Tech/Techni trinh ID = [id number] for IB RAHIM, SERKALEM RAD, CHEST, 1 VIEW, NON [id number] 14:15:00Reason for exam:->coughShould this be performed at the bedside?->Yes [facility] JESUS DUNAWAY : 1935 Sex: MFINAL REPORT RAD, CHEST, 1 VIEW, NON DEPT INDICATION: cough COMPAR JORGE: September 02, 2021 FINDINGS: Portable frontal view of the chest. IMPRESSION: Support Lines: None Lungs and pleura: Persistent small layering effusion on the right. Left lung is clear. No pneumothorax.Heart and mediastinum: Stable contours. Stable surgical changes.Additional findings: None. Signed: JR Malin Robert MDReport Verified Date/Time: 09/05/2021 14:15:34 Reading Location: [facility] Radiology Reading Room POCT- GLUCOSE [id number] 12:04:21 Test Item Value Reference Range Interpretation Comments POC-GLUCOSE METER 257 mg/dL 70-110 H : TESTED A T [facility] 6720 (BEAKER) (test code = [facility], 1538) 74219: Quality Control Lab Tech/Techni trinh ID = [id number] for IB RAHIM, SERKALEM POCT-GLUCOSE [id number] 07:57:46 Test Item Value Reference Range Interpretation Comments POC-GLUCOSE METER 198 mg/dL 70-110 H : TESTED A T [facility] 6720 (BEAKER) (test code = [facility], 1538) 42064: Quality Control Lab Tech/Techni trinh ID = [id number] for IB RAHIM, SERKALEM BASIC METABOLIC [id number] 06:44:59 Test Item Value Reference Range Interpretation Comments SODIUM (BEAKER) 136 meq/L 136-145 (test code = 381) POTASSIUM (BEAKER) 5.0 meq/L 3.5-5.1 (test code = 379) CHLORIDE (BEAKER) 101 meq/L 98-107 (test code = 382) CO2 (BEAKER) (test 26 meq/L 22-29 code = 355) BLOOD UREA NITROGEN 49 mg/dL 7-21 H (BEAKER) (test code = 354) CREATININE (BEAKER) 1.35 mg/dL 0.57-1.25 H (test code = 358) GLUCOSE RANDOM 215 mg/dL 70-105 H (BEAKER) (test code = 652) CALCIUM (BEAKER) 8.8 mg/dL 8.4-10.2 (test code = 697) EGFR (BEAKER) (test 50 mL/min/1.73 ESTIMA DIGNA GFR IS code = 1092) sq m NOT ACCURATE CREATININE CLEARANCE IN PREDICTING GLOMERULAR FILTRATION RATE . ESTIMATED GFR I S NOT APPLICABLE FOR DIALYSIS PATIEN TS. Quality Control Lab Tech ID - DBPOCT-GLUCOSE [id number] 22:37:23 Test Item Value Reference Range Interpretation Comments POC-GLUCOSE METER 273 mg/dL 70-110 H : TESTED A T [facility] 6720 ([employer]) (test code = [facility], 1538) 11818: Quality Control Lab Tech/Techni trinh ID = [id number] for JASMIN JALLOH RA POCT-GLUCOSE [id number] 16:59:00 Test Item Value Reference Range Interpretation Comments POC-GLUCOSE METER 209 mg/dL 70-110 H : TESTED A T [facility] 6720 ([employer]) (test code = [facility], 1538) 63564: Quality Control Lab Tech/Techni trinh ID = [id number] for IB RAHIM, SERKALEM POCT-GLUCOSE [id number] 12:28:30 Test Item Value Reference Range Interpretation Comments POC-GLUCOSE METER 243 mg/dL 70-110 H : TESTED A T [facility] 6720 ([employer]) (test code = [facility], 1538) 34813: Quality Control Lab Tech/Techni trinh ID = [id number] for IB RAHIM, SERKALEM POCT-GLUCOSE [id number] 07:58:43 Test Item Value Reference Range Interpretation Comments POC-GLUCOSE METER 203 mg/dL 70-110 H : TESTED A T [facility] 6720 ([employer]) (test code = [facility], 1538) 21505: Quality Control Lab Tech/Techni trinh ID = [id number] for IB RAHIM, SERKALEM BASIC METABOLIC [id number] 07:37:02 Test Item Value Reference Range Interpretation Comments SODIUM (BEAKER) 138 meq/L 136-145 (test code = 381) POTASSIUM (BEAKER) 4.8 meq/L 3.5-5.1 (test code = 379) CHLORIDE (BEAKER) 103 meq/L 98-107 (test code = 382) CO2 (BEAKER) (test 28 meq/L 22-29 code = 355) BLOOD UREA NITROGEN 48 mg/dL 7-21 H (BEAKER) (test code = 354) CREATININE (BEAKER) 1.33 mg/dL 0.57-1.25 H (test code = 358) GLUCOSE RANDOM 207 mg/dL 70-105 H (BEAKER) (test code = 652) CALCIUM (BEAKER) 9.1 mg/dL 8.4-10.2 (test code = 697) EGFR (BEAKER) (test 51 mL/min/1.73 ESTIMA DIGNA GFR IS code = 1092) sq m NOT ACCURATE CREATININE CLEARANCE IN PREDICTING GLOMERULAR FILTRATION RATE . ESTIMATED GFR I S NOT APPLICABLE FOR DIALYSIS PATIEN TS. Quality Control Lab Tech ID - SACHIN MPOCT-GLUCOSE [id number] 23:46:24 Test Item Value Reference Range Interpretation Comments POC-GLUCOSE METER 249 mg/dL 70-110 H : TESTED A T [facility] 6720 (BEAKER) (test code = [facility], 1538) 81658: Quality Control Lab Tech/Techni trinh ID = [id number] for Bl acher, Bree POCT-GLUCOSE [id number] 21:38:10 Test Item Value Reference Range Interpretation Comments POC-GLUCOSE METER 247 mg/dL 70-110 H : TESTED A T [facility] 6720 (BEAKER) (test code [facility], = 1538) 76579: Quality Control Lab Tech/Techni trinh ID = [id number] for Rikki ti, Simranjit POCT-GLUCOSE [id number] 18:15:20 Test Item Value Reference Range Interpretation Comments POC-GLUCOSE METER 247 mg/dL 70-110 H : TESTED A T [facility] 6720 (BEAKER) (test code = [facility], 1538) 34173: Quality Control Lab Tech/Techni trinh ID = [id number] for Compa khan (contract), [facility] [id number] 14:38:44Medical Cytology Report Case: [id number] Authorizing Provider: Irene Dawson MD Collected: 09/02/2021 11:14 AM Ordering Location: [address] Received: 09/02/2021 02:01 PM Service Pathologist: Marva Telles MD Specimen: Pleural, Right PLEURAL FLUID, RIGHT, THORACENTESIS: - NO MALIGNANT CELLS IDENTIFIED - PREDOMINATELY BLOOD AND MIXED INFLAMMATORY CELLS - SEE COMMENT Signing Pathologist Direct Phone Line: [phone] signed by Marva Telles MD on 09/03/2021 at 2:38 PMIf the fluid reaccumulates and malignancy suspected, additional sampling may be indicated. Cell block concurs with the above diagnosis.30380, 14610Elufb pleural effusion, CADRIGHT PLEURAL FLUIDReceived 50 mls bloody fluid; prepared 4 cytospins and cell block(A2) the cell block was fixed in formalin at 2:37 pm on 09/02/21 Performed. [facility], Department of Pathology, [address] [place] [address], Tel [phone] [place] [address], Department of Pathology, [address] [place] [address], [facility], Department of Pathology, [address] [place] [address], XLLA-GLUCOSE [id number] 12:02:17 Test Item Value Reference Range Interpretation Comments POC-GLUCOSE METER 258 mg/dL 70-110 H : [facility]EndoEvolution[facility] (test code = [facility], 1538) 54885: Quality Control Lab Tech/Techni trinh ID = [id number] for No or, Siddiqua POCT-GLUCOSE [id number] 08:09:47 Test Item Value Reference Range Interpretation Comments POC-GLUCOSE METER 179 mg/dL 70-110 H : TESTED A T [facility] 6720 (BEAKER) (test code = [facility], 1538) 16131: Quality Control Lab Tech/Techni trinh ID = [id number] for No or, Siddiqua BASIC METABOLIC [id number] 07:01:19 Test Item Value Reference Range Interpretation Comments SODIUM (BEAKER) 137 meq/L 136-145 (test code = 381) POTASSIUM (BEAKER) 4.9 meq/L 3.5-5.1 (test code = 379) CHLORIDE (BEAKER) 103 meq/L 98-107 (test code = 382) CO2 (BEAKER) (test 27 meq/L 22-29 code = 355) BLOOD UREA NITROGEN 49 mg/dL 7-21 H (BEAKER) (test code = 354) CREATININE (BEAKER) 1.28 mg/dL 0.57-1.25 H (test code = 358) GLUCOSE RANDOM 225 mg/dL 70-105 H (BEAKER) (test code = 652) CALCIUM (BEAKER) 8.9 mg/dL 8.4-10.2 (test code = 697) EGFR (BEAKER) (test 53 mL/min/1.73 ESTIMA DIGNA GFR IS code = 1092) sq m NOT ACCURATE CREATININE CLEARANCE IN PREDICTING GLOMERULAR FILTRATION RATE . ESTIMATED GFR I S NOT APPLICABLE FOR DIALYSIS PATIEN TS. Quality Control Lab Tech ID - TIKI FPOCT-GLUCOSE [id number] 23:02:43 Test Item Value Reference Range Interpretation Comments POC-GLUCOSE METER 199 mg/dL 70-110 H : TESTED A T [facility] 67 [facility] (test code = LB Miguel [facility], 1538) 25393: Quality Control Lab Tech/Techni trinh ID = [id number] for GIL WINTERS POCT-GLUCOSE [id number] 17:06:03 Test Item Value Reference Range Interpretation Comments POC-GLUCOSE METER 258 mg/dL 70-110 H : Notified RN/MD: ([facility] (test code = TESTED AT [facility] 6720 1538) [facility], 92102: Quality Control Lab Tech/Techni trinh ID = [id number] for FOX BUSTILLOS U/S, [id number] 17:02:00Laterality?->RightReason for exam:- >r/o malignencyLabs to be Ordered:->Cytology [facility] : 1935 Sex: MFINAL REPORT Ultrasound guided right thoracentesis Clinical History: Right pleural effusion. Modality: Ultrasound. Sedation: None. Braided Band Assembler: Angelica Camacho PA-C Cement Handler: None. Estimated Blood Loss: 1cc Specimen: 100 cc of clear yellow fluid. Technique: Informed consent was obtained. The risks of pain, bleeding, infection, lung collap se/pneumothorax, injury to adjacent structures, and adverse medication reactions were discussed withthe patient. The patient's right hemithorax was scanned from the back, with the patient in a left lateral decubitus position. After the largest fluid pocket area was marked, the skin was prepped and draped in the usual sterile manner. The area was anesthetized with 2% lidocaine, a 5 F one- step catheter was advanced into the pleural space under ultrasound guidance. After completion of drainage, thecatheter was removed. There was no evidence of immediate complication. Post procedure chest x-ray is pending. Impression:Successful and uncomplicated ultrasound guided right thoracentesis. Signed: Valerio Boles Verified Date/Time: 09/02/2021 17:02:01 Reading Location: [address] Ultrasound Reading Room POCT-GLUCOSE [id number] 12:40:27 Test Item Value Reference Range Interpretation Comments POC-GLUCOSE METER 182 mg/dL 70-110 H : TESTED A T [facility] 6720 (BEAKER) (test code = [place], 1538) 09543: Quality Control Lab Tech/Techni trinh ID = [id number] for An yakee (contract), [facility] eci RAD, CHEST, 1 VIEW, NON [id number] 12:12:00Reason for exam:->s/p right thoraShould this be performed at the bedside?->Yes [facility] DU[facility] : 1935 Sex: MFINAL REPORT TECHNIQUE: Frontal view of the chest. INDICATION: s/p right thora COMPARISON: CT chest 08/27/2021. FINDINGS: LINES/TUBES: None. LUNGS: Postsurgical changes in the right lung with volume loss in the right hemithorax.. There is right apical pleural and parenchymal scarring. Linear bands of atelectasis or scarring in the right lung base.. Left lung is clear. PLEURA: No pneumothorax or significant pleural effusion. HEART AND MEDIASTINUM: The cardiomediastinal silhouette is within normal limits. SOFT TISSUES AND BONES: Unremarkable. IMPRESSION:No pneumothorax status post thoracentesis.. Signed: Jennifer Castañeda MDReport Verified Date/Time: 09/02/2021 12:12:14 -GLUCOSE [id number] 08:36:12 Test Item Value Reference Range Interpretation Comments POC-GLUCOSE METER 168 mg/dL 70-110 H : Notified RN/: (KRUPA) (test code = TESTED AT [facility] 6720 1538) [facility], [address]: Quality Control Lab Tech/Techni trinh ID = [id number] for Daphne Duke BASIC METABOLIC [id number] 06:58:12 Test Item Value Reference Range Interpretation Comments SODIUM (BEAKER) 136 meq/L 136-145 (test code = 381) POTASSIUM (BEAKER) 4.5 meq/L 3.5-5.1 (test code = 379) CHLORIDE (BEAKER) 103 meq/L 98-107 (test code = 382) CO2 (BEAKER) (test 24 meq/L 22-29 code = 355) BLOOD UREA NITROGEN 40 mg/dL 7-21 H (BEAKER) (test code = 354) CREATININE (BEAKER) 1.32 mg/dL 0.57-1.25 H (test code = 358) GLUCOSE RANDOM 190 mg/dL 70-105 H (BEAKER) (test code = 652) CALCIUM (BEAKER) 8.8 mg/dL 8.4-10.2 (test code = 697) EGFR (BEAKER) (test 52 mL/min/1.73 ESTIMA DIGNA GFR IS code = 1092) sq m NOT ACCURATE CREATININE CLEARANCE IN PREDICTING GLOMERULAR FILTRATION RATE . ESTIMATED GFR I S NOT APPLICABLE FOR DIALYSIS PATIEN TS. Quality Control Lab Tech ID - TIKI [facility] (HEMOGRAM ONLY)2021-09-02 06:39:41 Test Item Value Reference Range Interpretation Comments WHITE BLOOD CELL COUNT (BEAKER) 6.9 K/ L 3.5-10.5 (test code = 775) RED BLOOD CELL COUNT (BEAKER) 3.27 M/ L 4.63-6.08 L (test code = 761) HEMOGLOBIN (BEAKER) (test code = 11.5 GM/DL 13.7-17.5 L 410) HEMATOCRIT (BEAKER) (test code = 34.3 % 40.1-51.0 L 411) MEAN CORPUSCULAR VOLUME (BEAKER) 104.9 fL 79.0-92.2 H (test code = 753) MEAN CORPUSCULAR HEMOGLOBIN 35.2 pg 25.7-32.2 H (BEAKER) (test code = 751) MEAN CORPUSCULAR HEMOGLOBIN CONC 33.5 GM/DL 32.3-36.5 (BEAKER) (test code = 752) RED CELL DISTRIBUTION WIDTH 14.0 % 11.6-14.4 (BEAKER) (test code = 412) PLATELET COUNT (BEAKER) (test 123 K/CU MM 150-450 L code = 756) MEAN PLATELET VOLUME (BEAKER) 9.9 fL 9.4-12.4 (test code = 754) NUCLEATED RED BLOOD CELLS 0 /100 WBC 0-0 (BEAKER) (test code = 413) POCT-GLUCOSE [id number] 23:06:16 Test Item Value Reference Range Interpretation Comments POC-GLUCOSE METER 178 mg/dL 70-110 H : TESTED A T [facility] 6720 (KRUPA) (test code = LB Miguel [facility], 1538) 81471: Quality Control Lab Tech/Techni trinh ID = [id number] for Nando Paul [id number] 17:55:47Medical Cytology Report Case: [id number] Authorizing Provider: Irene Dawson MD Collected: 08/28/2021 05:25 PM Ordering Location: [address] Received: 08/29/2021 09:03 AM Service Pathologist: Gillian Adan MD Specimen: CSF CEREBROSPINAL FLUID (CYTOSPINS): - NEGATIVE FOR EPITHELIAL MALIGNANCY Few lymphocytes and monocytes present Signing Pathologist Direct Phone Line: [phone] signed by Gillian Adan MD on 09/01/2021 at 5:55 [id number] of right upper lobe lung cancer 2 years ago s/p RUL Lobectomy, who has been on active surveillance, who presented with left hemiparesis. Imaging of the brain revealed a3.6 cm right parietal lobe mass and several other small brain metastasis with significant vasogenic edema. CEREBROSPINAL FLUID (CYTOSPINS) Received 2.5 mls clear colorless fluid; prepared 2 cytospins. Performed. [facility], Department of Pathology, [address] [place] [address], [facility], Department of Pathology, [address] [place] [address], [facility], Department of Pathology, [address] [place] [address], OLKK-GLUCOSE [id number] 17:44:16 Test Item Value Reference Range Interpretation Comments POC-GLUCOSE METER 235 mg/dL 70-110 H : Pt. refu sed rpt tst: (KRUPA) (test code = TESTED AT [facility] 6720 1538) [facility], [address]: Quality Control Lab Tech/Techni trinh ID = [id number] for AN LAURA MERINO POCT-GLUCOSE [id number] 13:52:21 Test Item Value Reference Range Interpretation Comments POC-GLUCOSE METER 176 mg/dL 70-110 H : Notified RN/MD: (KRUPA) (test code = TESTED AT [facility] 67 1538) [facility], [address]: Quality Control Lab Tech/Techni trinh ID = [id number] for AN LAURA MERINO POCT-GLUCOSE [id number] 08:07:26 Test Item Value Reference Range Interpretation Comments POC-GLUCOSE METER 184 mg/dL 70-110 H : Notified RN/MD: (KRUPA) (test code = TESTED AT [facility] 67 1538) [facility], [address]: Quality Control Lab Tech/Techni trinh ID = [id number] for AN LAURA MERINO BASIC METABOLIC [id number] 05:42:15 Test Item Value Reference Range Interpretation Comments SODIUM (BEAKER) 137 meq/L 136-145 (test code = 381) POTASSIUM (BEAKER) 4.6 meq/L 3.5-5.1 (test code = 379) CHLORIDE (BEAKER) 105 meq/L 98-107 (test code = 382) CO2 (BEAKER) (test 24 meq/L 22-29 code = 355) BLOOD UREA NITROGEN 31 mg/dL 7-21 H (BEAKER) (test code = 354) CREATININE (BEAKER) 1.27 mg/dL 0.57-1.25 H (test code = 358) GLUCOSE RANDOM 195 mg/dL 70-105 H (BEAKER) (test code = 652) CALCIUM (BEAKER) 9.1 mg/dL 8.4-10.2 (test code = 697) EGFR (BEAKER) (test 54 mL/min/1.73 ESTIMA DIGNA GFR IS code = 1092) sq m NOT ACCURATE CREATININE CLEARANCE IN PREDICTING GLOMERULAR FILTRATION RATE . ESTIMATED GFR I S NOT APPLICABLE FOR DIALYSIS PATIEN TS. Quality Control Lab Tech ID - SACHIN MPROTHROMBIN [id number] 05:39:35 Test Item Value Reference Range Interpretation Comments PROTIME (BEAKER) 15.4 seconds 11.9-14.2 H (test code = 759) INR (BEAKER) (test 1.24 See_Comment [Automat ed message] code = 370) The system [employer] generated this result transmitted ref erence range: <=5.90. The reference range was not used to int erpret this result as normal/abnormal . RECOMMENDED COUMADIN/WARFARIN INR THERAPY RANGESSTANDARD DOSE: 2.0 - 3.0 Includes: PROPHYLAXIS forvenous thrombosis, systemic embolization; TREATMENT for venous thrombosis and/or pulmonary embolus.HIGH RISK: Target INR is 2.5-3.5 for patients with mechanical heart valves.CBC (HEMOGRAM ONLY)2021-09-01 05:16:08 Test Item Value Reference Range Interpretation Comments WHITE BLOOD CELL COUNT (BEAKER) 8.7 K/ L 3.5-10.5 (test code = 775) RED BLOOD CELL COUNT (BEAKER) 3.32 M/ L 4.63-6.08 L (test code = 761) HEMOGLOBIN (BEAKER) (test code = 11.6 GM/DL 13.7-17.5 L 410) HEMATOCRIT (BEAKER) (test code = 33.8 % 40.1-51.0 L 411) MEAN CORPUSCULAR VOLUME (BEAKER) 101.8 fL 79.0-92.2 H (test code = 753) MEAN CORPUSCULAR HEMOGLOBIN 34.9 pg 25.7-32.2 H (BEAKER) (test code = 751) MEAN CORPUSCULAR HEMOGLOBIN CONC 34.3 GM/DL 32.3-36.5 (BEAKER) (test code = 752) RED CELL DISTRIBUTION WIDTH 14.0 % 11.6-14.4 (BEAKER) (test code = 412) PLATELET COUNT (BEAKER) (test 120 K/CU MM 150-450 L code = 756) MEAN PLATELET VOLUME (BEAKER) 10.2 fL 9.4-12.4 (test code = 754) NUCLEATED RED BLOOD CELLS 0 /100 WBC 0-0 (BEAKER) (test code = 413) POCT-GLUCOSE [id number] 21:29:42 Test Item Value Reference Range Interpretation Comments POC-GLUCOSE METER 210 mg/dL 70-110 H : TESTED A T [facility] 6720 (BEAKER) (test code = [place], 1538) [address]: Quality Control Lab Tech/Techni trinh ID = [id number] for Kelle Montes POCT-GLUCOSE [id number] 18:06:07 Test Item Value Reference Range Interpretation Comments POC-GLUCOSE METER 163 mg/dL 70-110 H : TESTED A T [facility] 6720 (BEAKER) (test code = [facility], 1538) 68270: Quality Control Lab Tech/Techni trinh ID = [id number] for GAMALIEL OLEA POCT-GLUCOSE [id number] 13:40:26 Test Item Value Reference Range Interpretation Comments POC-GLUCOSE METER 235 mg/dL 70-110 H : TESTED A T [facility] 6720 (BEAKER) (test code = [facility], 1538) 10952: Quality Control Lab Tech/Techni trinh ID = [id number] for GAMALIEL OLEA POCT-GLUCOSE [id number] 08:03:33 Test Item Value Reference Range Interpretation Comments POC-GLUCOSE METER 167 mg/dL 70-110 H : TESTED A T [facility] 6720 (BEAKER) (test code = [facility], 1538) 85691: Quality Control Lab Tech/Techni trinh ID = [id number] for GAMALIEL OLEA BASIC METABOLIC [id number] 05:58:26 Test Item Value Reference Range Interpretation Comments SODIUM (BEAKER) 138 meq/L 136-145 (test code = 381) POTASSIUM (BEAKER) 4.6 meq/L 3.5-5.1 (test code = 379) CHLORIDE (BEAKER) 105 meq/L 98-107 (test code = 382) CO2 (BEAKER) (test 26 meq/L 22-29 code = 355) BLOOD UREA NITROGEN 25 mg/dL 7-21 H (BEAKER) (test code = 354) CREATININE (BEAKER) 1.16 mg/dL 0.57-1.25 (test code = 358) GLUCOSE RANDOM 181 mg/dL 70-105 H (BEAKER) (test code = 652) CALCIUM (BEAKER) 8.7 mg/dL 8.4-10.2 (test code = 697) EGFR (BEAKER) (test 60 mL/min/1.73 ESTIMA DIGNA GFR IS code = 1092) sq m NOT ACCURATE CREATININE CLEARANCE IN PREDICTING GLOMERULAR FILTRATION RATE . ESTIMATED GFR I S NOT APPLICABLE FOR DIALYSIS PATIEN TS. Quality Control Lab Tech ID - ISABEL WPOCT-GLUCOSE [id number] 22:09:37 Test Item Value Reference Range Interpretation Comments POC-GLUCOSE METER 155 mg/dL 70-110 H : TESTED A T [facility] 6720 (BEAKER) (test code = LB Miguel [place], 1538) [address]: Quality Control Lab Tech/Techni trinh ID = [id number] for Kelle Montes POCT-GLUCOSE [id number] 17:42:06 Test Item Value Reference Range Interpretation Comments POC-GLUCOSE METER 190 mg/dL 70-110 H : TESTED A T [facility] 6720 (BEAKER) (test code = LB Miguel [facility], 1538) 14728: Quality Control Lab Tech/Techni trinh ID = [id number] for DORA GALLAGHER U/S, ABDOMINAL, [id number] 16:51:00Abdomen limited area? Add comment if clarification is needed.->Gall BladderReason for exam:->dilated Bile duct on CTDAVID [facility] : 1935 Sex: MFINAL REPORT ULTRASOUND RIGHT UPPER QUADRANT OF THE ABDOMEN HISTORY: Bile duct dilatation COMPARISON: CT abdomen of 08/28/2021 TECHNIQUE: Real-time ultrasound of theright upper quadrant of the abdomen was performed. FINDINGS: The liver is normal in size. Hepatic length is 12.1 cm. No hepatic mass lesion is visualized. The gallbladder demonstrates normal wall thickness with no pericholecystic fluid. No sonographic Pelaez sign was elicited. No gallstones. The gallbladder is mildly hydropic, measuring 4.3 cm transaxially, which can be normal at this age. The common bile duct is normal in caliber, measuring 8 mm, normal for the patient's age. The main portal veinis normal in caliber, measuring 10 mm. No pancreatic abnormality was visualized. The pancreatic tail was obscured by bowel gas. No ascites or pleural effusion. The right kidney is normal in size, contour, and echogenicity. The right kidney measures 9.3 cm in length. No hydronephrosis, mass lesion orstones are visualized. No abnormalities are seen in the abdominal aorta, inferior vena cava, or hepatic veins. Portions of the abdominal aorta were obscured by bowel gas. IMPRESSION: No ultrasound abnormalities are visualized in the right upper quadrant of the abdomen. Signed: Ashley Matson MDReport Verified Date/Time: 08/30/2021 16:51:56 Reading Location: [address] Transitional Reading Room SARS-COV2/RT-PCR ([facility])2021-08-30 14:52:31 Test Item Value Reference Range Interpretation Comments SARS-COV2/RT-PCR (test Negative Not Detected, Negative, code = 5590688) See external report for linked test SARS-COV-2 PERFORMING LAB [facility] (test code = 2297496) Negative result for this test determines that SARS-CoV-2 RNA was not present in the specimen above the Limit of Detection (LOD). However, Negative results do not preclude SARS-CoV-2 infection and should not be used as the sole basis for treatment or patient management decisions. Negative results mustbe combined with clinical observations, patient history, and epidemiological information. A false negative result may occur if a specimen is improperly collected, transported or handled. A false negative result should be considered if patient's recent exposures or clinical presentation indicate that COVID-19 (SARS-CoV-2) is likely and diagnostic tests for other causes of illness are negative. Re-testing should be considered in cases of suspected false negatives.The limit of detection for this assay is 800 copies/mL.This SARS CoV-2 test is a real-time RT-PCR test intended for the qualitative detection of nucleic acid from SARS-CoV-2 in a nasopharyngeal swab specimen collected from individuals susp ected of COVID-19 by their healthcare provider.This test has not been Food and Drug Administration (FDA) cleared or approved. This is a modified version of an approved Emergency Use Authorization (EUA) and is in the process of review by the FDA. Once authorized by the FDA, the issued EUA will be effective until the declaration that circumstances exist justifying the authorization of the emergency use of in vitro diagnostic tests for detection and/or diagnosis of COVID-19 is terminated under Section 564(b)(2) of the Act or the EUA is revoked under Section 564(g) of the Act.Fact Sheet for Healthcare Providers:https://www.[employer] [facility]/sites/default/files/product/documents/Fact_Shee v_UZ_Etoqahxyf_Shos_LQUW-IsG-2.pdfFact Sheet for Healthcare Patients:https://www.[facility]/sites/default/files/product/ documents/Vqrh_Dfbbf_Tepcmehj_Cloi_JVQW-VrD-9.pdfPerforming Laboratory:[facility] [place] [address].[place], [place] [address]WCBY-DYRIGAT METER 2021-08-30 13:00:09 Test Item Value Reference Range Interpretation Comments POC-GLUCOSE METER 201 mg/dL 70-110 H : TESTED A T [facility] 6720 (BEAKER) (test code = [facility], 1538) [address]: Quality Control Lab Tech/Techni trinh ID = [id number] for DORA GALLAGHER POCT-GLUCOSE [id number] 09:46:54 Test Item Value Reference Range Interpretation Comments POC-GLUCOSE METER 176 mg/dL 70-110 H : TESTED A T [facility] 6720 (BEAKER) (test code = [facility], 1538) 28676: Quality Control Lab Tech/Techni trinh ID = [id number] for DORA GALLAGHER COMPREHENSIVE METABOLIC [id number] 07:35:03 Test Item Value Reference Range Interpretation Comments TOTAL PROTEIN 5.6 gm/dL 6.0-8.3 L (BEAKER) (test code = 770) ALBUMIN (BEAKER) 3.1 g/dL 3.5-5.0 L (test code = 1145) ALKALINE PHOSPHATASE 118 U/L 40-150 (BEAKER) (test code = 346) BILIRUBIN TOTAL 0.4 mg/dL 0.2-1.2 (BEAKER) (test code = 377) SODIUM (BEAKER) (test 138 meq/L 136-145 code = 381) POTASSIUM (BEAKER) 4.3 meq/L 3.5-5.1 (test code = 379) CHLORIDE (BEAKER) 106 meq/L 98-107 (test code = 382) CO2 (BEAKER) (test 25 meq/L 22-29 code = 355) BLOOD UREA NITROGEN 26 mg/dL 7-21 H (BEAKER) (test code = 354) CREATININE (BEAKER) 1.20 mg/dL 0.57-1.25 (test code = 358) GLUCOSE RANDOM 172 mg/dL 70-105 H (BEAKER) (test code = 652) CALCIUM (BEAKER) 8.4 mg/dL 8.4-10.2 (test code = 697) AST (SGOT) (BEAKER) 16 U/L 5-34 (test code = 353) ALT (SGPT) (BEAKER) 14 U/L 6-55 (test code = 347) EGFR (BEAKER) (test 58 mL/min/1.73 ESTIMA DIGNA GFR IS code = 1092) sq m NOT ACCURATE CREATININE CLEARANCE IN PREDICTING GLOMERULAR FILTRATION RATE . ESTIMATED GFR I S NOT APPLICABLE FOR DIALYSIS PATIEN TS. Quality Control Lab Tech ID - DBPOCT-GLUCOSE [id number] 21:37:57 Test Item Value Reference Range Interpretation Comments POC-GLUCOSE METER 238 mg/dL 70-110 H : TESTED A T [facility] 6720 (KRUPA) (test code = [facility]ITALCYNTHIA Miguel [facility], 1538) [address]: Quality Control Lab Tech/Techni trinh ID = [id number] for Kelle Montes POCT-GLUCOSE [id number] 17:49:36 Test Item Value Reference Range Interpretation Comments POC-GLUCOSE METER 179 mg/dL 70-110 H : Notified RN/MD: (KRUPA) (test code = TESTED AT [facility] 6720 1538) [facility], [address]: Quality Control Lab Tech/Techni trinh ID = [id number] for LAURA [place], LUMBAR PUNCTURE, [id number] 16:00:00Labs to be ordered:->Other (please add comment)Reason for exam:->r/o LMP [facility] : 1935 Sex: MFINAL REPORT History: Metastatic lung cancer, brain lesion. PROCEDURE: Following informed written consent, the patient was placed in a prone position on the fluoroscopy table and his lower back was prepped and draped in the usual sterile manner. 2% lidocaine was given locally for anesthesia. No conscious sedation was administered. Using fluoroscopic guidance and a posterior approach, a 20-gauge spinal needle was advanced percutaneously into the thecal sac at the O0dhpgo. Opening pressure was estimated. Approximately 6 cc of slightly yellow but clear cerebral spinal fluid was aspirated and submitted in four separate vials to the lab for requested studies. The needle was then removed. Overall, the patient tolerated procedure well without immediate competitions and was discharged from the department in stable condition. FINDINGS: Spot AP and lateral views of the spine following needle placement demonstrates the spinal needle in expected position within the thecal sac at the L3 level. Opening pressure was estimated at 7 cm the bladder. IMPRESSION: 1. Technicallysuccessful uncomplicated fluoroscopically guided lumbar puncture. Total fluoroscopy time: 1.1 minutes. Estimated total patient dose reported as (Ka,r): 40 mGy Signed: Jeremias Boyd Verified Date/Time: 08/29/2021 16:00:52 Reading Location: [facility] Diagnostic Imaging Reading Room [place] [address] [phone] POCT- GLUCOSE [id number] 13:29:41 Test Item Value Reference Range Interpretation Comments POC-GLUCOSE METER 209 mg/dL 70-110 H : Notified RN/: (KRUPA) (test code = TESTED AT [facility] 6720 1538) [facility], [id number]: Quality Control Lab Tech/Techni trinh ID = [id number] for AN LAURA MERINO POCT-GLUCOSE [id number] 08:56:09 Test Item Value Reference Range Interpretation Comments POC-GLUCOSE METER 183 mg/dL 70-110 H : [facility] (BEAKER) (test code = DOUGLASCYNTHIA Myriam [place], 1538) [id number]: Quality Control Lab Tech/Techni trinh ID = [id number] for LAURA [place] COMPREHENSIVE METABOLIC [id number] 06:55:23 Test Item Value Reference Range Interpretation Comments TOTAL PROTEIN 5.8 gm/dL 6.0-8.3 L (BEAKER) (test code = 770) ALBUMIN (BEAKER) 3.1 g/dL 3.5-5.0 L (test code = 1145) ALKALINE PHOSPHATASE 125 U/L 40-150 (BEAKER) (test code = 346) BILIRUBIN TOTAL 0.3 mg/dL 0.2-1.2 (BEAKER) (test code = 377) SODIUM (BEAKER) (test 139 meq/L 136-145 code = 381) POTASSIUM (BEAKER) 4.2 meq/L 3.5-5.1 (test code = 379) CHLORIDE (BEAKER) 104 meq/L 98-107 (test code = 382) CO2 (BEAKER) (test 26 meq/L 22-29 code = 355) BLOOD UREA NITROGEN 23 mg/dL 7-21 H (BEAKER) (test code = 354) CREATININE (BEAKER) 1.41 mg/dL 0.57-1.25 H (test code = 358) GLUCOSE RANDOM 162 mg/dL 70-105 H (BEAKER) (test code = 652) CALCIUM (BEAKER) 8.5 mg/dL 8.4-10.2 (test code = 697) AST (SGOT) (BEAKER) 20 U/L 5-34 (test code = 353) ALT (SGPT) (BEAKER) 16 U/L 6-55 (test code = 347) EGFR (BEAKER) (test 48 mL/min/1.73 ESTIMA DIGNA GFR IS code = 1092) sq m NOT ACCURATE CREATININE CLEARANCE IN PREDICTING GLOMERULAR FILTRATION RATE . ESTIMATED GFR I S NOT APPLICABLE FOR DIALYSIS PATIEN TS. Quality Control Lab Tech ID - [id number] (HEMOGRAM ONLY)2021-08-29 04:53:03 Test Item Value Reference Range Interpretation Comments WHITE BLOOD CELL COUNT (BEAKER) 5.6 K/ L 3.5-10.5 (test code = 775) RED BLOOD CELL COUNT (BEAKER) 3.09 M/ L 4.63-6.08 L (test code = 761) HEMOGLOBIN (BEAKER) (test code = 10.8 GM/DL 13.7-17.5 L 410) HEMATOCRIT (BEAKER) (test code = 32.2 % 40.1-51.0 L 411) MEAN CORPUSCULAR VOLUME (BEAKER) 104.2 fL 79.0-92.2 H (test code = 753) MEAN CORPUSCULAR HEMOGLOBIN 35.0 pg 25.7-32.2 H (BEAKER) (test code = 751) MEAN CORPUSCULAR HEMOGLOBIN CONC 33.5 GM/DL 32.3-36.5 (BEAKER) (test code = 752) RED CELL DISTRIBUTION WIDTH 14.1 % 11.6-14.4 (BEAKER) (test code = 412) PLATELET COUNT (BEAKER) (test 126 K/CU MM 150-450 L code = 756) MEAN PLATELET VOLUME (BEAKER) 9.8 fL 9.4-12.4 (test code = 754) NUCLEATED RED BLOOD CELLS 0 /100 WBC 0-0 (BEAKER) (test code = 413) POCT-GLUCOSE [id number] 22:53:18 Test Item Value Reference Range Interpretation Comments POC-GLUCOSE METER 199 mg/dL 70-110 H : TESTED A [facility] 6720 ([facility]) (test code = [facility], 1537) [address]: Quality Control Lab Tech/Techni trinh ID = [id number] for ANGELA OR SAM HAGEN POCT-GLUCOSE [id number] 18:26:23 Test Item Value Reference Range Interpretation Comments POC-GLUCOSE METER 176 mg/dL 70-110 H : Notified RN/MD: ([facility]) (test code = TESTED AT [place] [address]) [facility], [address]: Quality Control Lab Tech/Techni trinh ID = [id number] for LAURA TRINIDAD POCT-GLUCOSE [id number] 13:03:23 Test Item Value Reference Range Interpretation Comments POC-GLUCOSE METER 236 mg/dL 70-110 H : TESTED A T [facility] 6720 ([facility]) (test code = [facility], 1537) [address]: Quality Control Lab Tech/Techni trinh ID = [id number] for AN LAURA MERINO CT, [id number] 12:31:00Unlisted Reason for Exam - Click Yes and Enter Reason Below->YesUnlisted Reason for Exam->r/o metastasisWill this procedure require oral contrast?->No [facility] : 1935 Sex: MFINAL REPORT CT abdomen and pelvis without contrast History: Assess for metastatic disease Comparison: CT chest 08/27/2021 Technique: serial axial imaging was performed without intravenous contrast as per departmental protocol. Multiplanar images are reconstructed and reviewed when indicated. This CT examination is performed using one or more of the following dosereduction techniques: Automated exposure control, adjustment of the mA and /or kV according to patient size, and/or use of iterative reconstruction technique. Findings:Evaluation limited by lack of intravenous contrast. Sludge versus vicarious contrast excretion within the gallbladder and common bileduct. The common bile duct measures near the upper limits of normal for the patient's age. No gallbladder wall thickening or pericholecystic fluid is seen. Grossly unremarkable appearance of unenhancedliver, pancreas, spleen, and adrenal glands. No urinary calculus. No hydronephrosis. Nonspecific bilateral perinephric fat stranding. No apparent bladder wall thickening. No small or large bowel obstruction. No apparent bowel wall thickening. No findings to indicate acute appendicitis. No free fluid or adenopathy. No aggressive osseous lesion. Impression: 1. Technically limited study due to lack of intravenous contrast. No definite metastatic disease in the abdomen or pelvis within the limitations of this study.2. Common bile duct measures near the upper limits of normal for the patient's age. Recommend correlation with serum bilirubin levels. Sludge versus vicarious contrast excretion within the gallbladder and common bile duct. Signed: Abhilash Desir Verified Date/Time: 08/28/2021 12:31:45 PROTHROMBIN [id number] 11:34:16 Test Item Value Reference Range Interpretation Comments PROTIME (BEAKER) 14.4 seconds 11.9-14.2 H (test code = 759) INR (BEAKER) (test 1.14 See_Comment [Automat ed message] code = 370) The system [employer] generated this result transmitted ref erence range: <=5.90. The reference range was not used to int erpret this result as normal/abnormal . RECOMMENDED COUMADIN/WARFARIN INR THERAPY RANGESSTANDARD DOSE: 2.0 - 3.0 Includes: PROPHYLAXIS forvenous thrombosis, systemic embolization; TREATMENT for venous thrombosis and/or pulmonary embolus.HIGH RISK: Target INR is 2.5-3.5 for patients with mechanical heart valves.POCT-GLUCOSE [id number] 07:58:20 Test Item Value Reference Range Interpretation Comments POC-GLUCOSE METER 163 mg/dL 70-110 H : TESTED Evan T [facility] 6720 (BEAKER) (test code = LB Miguel [facility], 1538) [address]: Quality Control Lab Tech/Techni trinh ID = [id number] for AN LAURA MERINO COMPREHENSIVE METABOLIC [id number] 06:08:58 Test Item Value Reference Range Interpretation Comments TOTAL PROTEIN 6.0 gm/dL 6.0-8.3 (BEAKER) (test code = 770) ALBUMIN (BEAKER) 3.3 g/dL 3.5-5.0 L (test code = 1145) ALKALINE PHOSPHATASE 399 U/L 40-150 H (BEAKER) (test code = 346) BILIRUBIN TOTAL 0.4 mg/dL 0.2-1.2 (BEAKER) (test code = 377) SODIUM (BEAKER) (test 140 meq/L 136-145 code = 381) POTASSIUM (BEAKER) 4.7 meq/L 3.5-5.1 (test code = 379) CHLORIDE (BEAKER) 106 meq/L 98-107 (test code = 382) CO2 (BEAKER) (test 25 meq/L 22-29 code = 355) BLOOD UREA NITROGEN 21 mg/dL 7-21 (BEAKER) (test code = 354) CREATININE (BEAKER) 1.35 mg/dL 0.57-1.25 H (test code = 358) GLUCOSE RANDOM 161 mg/dL 70-105 H (BEAKER) (test code = 652) CALCIUM (BEAKER) 9.1 mg/dL 8.4-10.2 (test code = 697) AST (SGOT) (BEAKER) 25 U/L 5-34 (test code = 353) ALT (SGPT) (BEAKER) 19 U/L 6-55 (test code = 347) EGFR (BEAKER) (test 50 mL/min/1.73 ESTIMA DIGNA GFR IS code = 1092) sq m NOT ACCURATE CREATININE CLEARANCE IN PREDICTING GLOMERULAR FILTRATION RATE . ESTIMATED GFR I S NOT APPLICABLE FOR DIALYSIS PATIEN TS. Quality Control Lab Tech ID - SACHIN MCBC (HEMOGRAM ONLY)2021-08-28 05:54:49 Test Item Value Reference Range Interpretation Comments WHITE BLOOD CELL COUNT (BEAKER) 6.5 K/ L 3.5-10.5 (test code = 775) RED BLOOD CELL COUNT (BEAKER) 3.12 M/ L 4.63-6.08 L (test code = 761) HEMOGLOBIN (BEAKER) (test code = 10.8 GM/DL 13.7-17.5 L 410) HEMATOCRIT (BEAKER) (test code = 32.2 % 40.1-51.0 L 411) MEAN CORPUSCULAR VOLUME (BEAKER) 103.2 fL 79.0-92.2 H (test code = 753) MEAN CORPUSCULAR HEMOGLOBIN 34.6 pg 25.7-32.2 H (BEAKER) (test code = 751) MEAN CORPUSCULAR HEMOGLOBIN CONC 33.5 GM/DL 32.3-36.5 (BEAKER) (test code = 752) RED CELL DISTRIBUTION WIDTH 14.2 % 11.6-14.4 (BEAKER) (test code = 412) PLATELET COUNT (BEAKER) (test 132 K/CU MM 150-450 L code = 756) MEAN PLATELET VOLUME (BEAKER) 9.8 fL 9.4-12.4 (test code = 754) NUCLEATED RED BLOOD CELLS 0 /100 WBC 0-0 (KRUPA) (test code = 413) POCT-GLUCOSE [id number] 23:47:33 Test Item Value Reference Range Interpretation Comments POC-GLUCOSE METER 162 mg/dL 70-110 H : TESTED A T [facility] 6720 (KRUPA) (test code = LB Miguel [facility], 1538) [address]: Quality Control Lab Tech/Techni trinh ID = [id number] for Pa charles, Felimari POCT-GLUCOSE [id number] 17:48:12 Test Item Value Reference Range Interpretation Comments POC-GLUCOSE METER 217 mg/dL 70-110 H : Notified RN/MD: (KRUPA) (test code = TESTED AT [facility] 6720 1538) [facility], [address]: Quality Control Lab Tech/Techni trinh ID = [id number] for AN LAURA MERINO CT, CHEST, WITHOUT [id number] 15:53:00Unlisted Reason for Exam - Click Yes and Enter Reason Below->YesUnlisted Reason for Exam->lungCancer historyDAVID [facility]: [facility] : 1935 Sex: MFINAL REPORT 6 TECHNIQUE: CT scan of the chest WITHOUT intravenous contrast. Dose modulation, iterative reconstruction, and/or weight-based adjustment of the mA/kV was utilized to reduce the radiation dose to as low as reasonably achievable. INDICATION: Unlisted Reason for [place] Cancer history. COMPARISON: None. FINDINGS: ABSENCE OF INTRAVENOUS CONTRAST DECREASES SENSITIVITY FOR DETECTION OF FOCAL LESIONS AND VASCULAR PATHOLOGY. LINES/TUBES: None. LUNGS AND AIRWAYS: Prior right upper lobectomy. There is a right lower lobe opacity at the periphery with some swelling of the vasculature which measures 1.6 x 0.9 x 4.8 cm and is mainly along the pleura. A nodule in the superior segment of the right lower lobe measures 1.6 x 0.7 cm on sagittal image 73 with a solid component which measures 0.9 cm. A groundglass nodule in the lingula measures 1.5 x 0.9 cm on axial image 33. Mild right apical bronchiectasis. A left lower lobe pulmonary nodule on axial image 30 measures 0.1 cm. There are increased interstitial opacities and tree-in-bud nodularity in the lingula. PLEURA: Small right pleural effusion with right pleural thickening. HEART AND MEDIASTINUM: The visualized thyroid gland is normal. No significant mediastinal, hilar, or axillary lymphadenopathy. The heart and pericardium are within normal limits. Marked coronary arterial calcification. Prior coronary by pass. Moderate calcification of the descending thoracic aorta and arch branch vessels. SOFT TISSUES AND BONES: Prior median sternotomy. Moderate degenerative changes of the glenohumeral joints. UPPER ABDOMEN: There is hyperdense material in the gallbladder. IMPRESSION: 1.Prior right upper lobectomy. A mixed solid and groundglass nodule in the left lower lobe measures 1.6 x 0.7 cm with a 0.9 cm solidcomponent. A lingular groundglass nodule measures 1.5 x 0.9 cm. These are nonspecific but concerningfor malignancy given the history. Consider either a three month follow-up CT or a PET/CT for furtherevaluation. 2.The right lower lobe pleural-based opacity which measures 1.6 x 0.9 x 4.8 cm is most likely round atelectasis. 3.There is a small right pleural effusion with right pleural thickening. This could be treatment related change. However, a malignant pleural effusion cannot be excluded on the basis of this imaging. 4.The tree-in-bud nodularity in the lingula is concerning for an age-indeterminate infection. 5.The hyperdense material in the gallbladder is concerning for cholelithiasis and/or sludge. Vicarious excretion of contrast is also possible. Signed: Timi Kat MDReport Verified Date/Time: 08/27/2021 15:53:25 HEMOGLOBIN [id number] 12:10:21 Test Item Value Reference Range Interpretation Comments HEMOGLOBIN A1C (KRUPA) (test code = 7.2 % 4.3-6.1 H 368) MR, BRAIN, [id number] 11:19:00STEALTH Protocol (1mm or thinner cuts, include tip of nose, 0 gantry angle)Unlisted Reason for Exam - Click Yes and Enter Reason Below->No [facility] : 1935 Sex: MFINAL REPORT MR, BRAIN, WITH \T\ WITHOUT CONTRAST INDICATION: Brain mass or lesion, follow-up Technique: MRI of the brain utilizing axial T1, T2, FLAIR, GRE, DWI, sagittal T1; and postgadolinium axial, sagittal, and coronal T1-weighted images. COMPARISON: None FINDINGS:2.9x 3.4 x 3.6 cm peripherally enhancing T1, T2 heterogeneous focus within the right parietal vertex with some intrinsic T1 shortening. There is adjacent edema within the right parietal and occipital subcortical white matter with effacement of the temporal horn of the right lateral ventricle. Numerous additional presumed enhancing metastases are present throughout the supratentorial and infratentorial parenchyma. Multiple cerebellar metastases are demonstrated, however, there is no significant mass effect within the posterior fossa and fourth ventricle remains widely patent. Scattered T2/FLAIR hyperintense foci within the periventricular and subcortical white matter are nonspecific, however, statistically represent chronic microvascular ischemic changes. No hydrocephalus. Orbits are within normal najera its. No obstructive paranasal sinus disease. Additional findings: None. IMPRESSION: Numerous supratentorial and infratentorial and parenchymal metastases, the largest of which within the right parietal lobe measures 2.9 x 3.4 x 3.6 cm. There is adjacent edema within the right parietal and occipital minor bcortical white matter with effacement of the temporal horn of the right lateral ventricle. No significant midline shift or herniation. Some metastatic lesions demonstrate concomitant susceptibility artifact, suggestive of intralesional hemorrhage, for example, within the cerebellar hemispheres. In the appropriate clinical setting (posttreatment), this may represent treatment effect. Signed: Bijal Craft MDReport Verified Date/Time: 08/27/2021 11:19:11 Reading Location: [facility] C013V Neuro Reading Room HEPATIC FUNCTION [id number] 06:20:38 Test Item Value Reference Range Interpretation Comments TOTAL PROTEIN (BEAKER) (test code = 5.9 gm/dL 6.0-8.3 L 770) ALBUMIN (BEAKER) (test code = 1145) 3.3 g/dL 3.5-5.0 L BILIRUBIN TOTAL (BEAKER) (test code 0.3 mg/dL 0.2-1.2 = 377) BILIRUBIN DIRECT (BEAKER) (test 0.2 mg/dL 0.1-0.5 code = 706) ALKALINE PHOSPHATASE (BEAKER) (test 132 U/L 40-150 code = 346) AST (SGOT) (BEAKER) (test code = 24 U/L 5-34 353) ALT (SGPT) (BEAKER) (test code = 19 U/L 6-55 347) Quality Control Lab Tech ID - SACHIN [id number] 06:20:38 Test Item Value Reference Range Interpretation Comments MAGNESIUM (BEAKER) (test code = 1.8 mg/dL 1.6-2.6 627) Quality Control Lab Tech ID - SACHIN MBASIC METABOLIC [id number] 06:20:37 Test Item Value Reference Range Interpretation Comments SODIUM (BEAKER) 140 meq/L 136-145 (test code = 381) POTASSIUM (BEAKER) 4.8 meq/L 3.5-5.1 (test code = 379) CHLORIDE (BEAKER) 106 meq/L 98-107 (test code = 382) CO2 (BEAKER) (test 25 meq/L 22-29 code = 355) BLOOD UREA NITROGEN 18 mg/dL 7-21 (BEAKER) (test code = 354) CREATININE (BEAKER) 1.06 mg/dL 0.57-1.25 (test code = 358) GLUCOSE RANDOM 133 mg/dL 70-105 H (BEAKER) (test code = 652) CALCIUM (BEAKER) 8.9 mg/dL 8.4-10.2 (test code = 697) EGFR (BEAKER) (test 66 mL/min/1.73 ESTIMA DIGNA GFR IS code = 1092) sq m NOT ACCURATE CREATININE CLEARANCE IN PREDICTING GLOMERULAR FILTRATION RATE . ESTIMATED GFR I S NOT APPLICABLE FOR DIALYSIS PATIEN TS. Quality Control Lab Tech ID - SACHIN MPROTHROMBIN [id number] 06:03:38 Test Item Value Reference Range Interpretation Comments PROTIME (BEAKER) 14.2 seconds 11.9-14.2 (test code = 759) INR (BEAKER) (test 1.12 See_Comment [Automat ed message] code = 370) The system [employer] generated this result transmitted ref erence range: <=5.90. The reference range was not used to int erpret this result as normal/abnormal . RECOMMENDED COUMADIN/WARFARIN INR THERAPY RANGESSTANDARD DOSE: 2.0 - 3.0 Includes: PROPHYLAXIS forvenous thrombosis, systemic embolization; TREATMENT for venous thrombosis and/or pulmonary embolus.HIGH RISK: Target INR is 2.5-3.5 for patients with mechanical heart valves.CBC W/PLT COUNT & AUTO DIFFERENTIAL 2021-08-27 05:47:15 Test Item Value Reference Range Interpretation Comments WHITE BLOOD CELL COUNT (BEAKER) 5.7 K/ L 3.5-10.5 (test code = 775) RED BLOOD CELL COUNT (BEAKER) 3.14 M/ L 4.63-6.08 L (test code = 761) HEMOGLOBIN (BEAKER) (test code = 10.7 GM/DL 13.7-17.5 L 410) HEMATOCRIT (BEAKER) (test code = 32.0 % 40.1-51.0 L 411) MEAN CORPUSCULAR VOLUME (BEAKER) 101.9 fL 79.0-92.2 H (test code = 753) MEAN CORPUSCULAR HEMOGLOBIN 34.1 pg 25.7-32.2 H (BEAKER) (test code = 751) MEAN CORPUSCULAR HEMOGLOBIN CONC 33.4 GM/DL 32.3-36.5 (BEAKER) (test code = 752) RED CELL DISTRIBUTION WIDTH 14.0 % 11.6-14.4 (BEAKER) (test code = 412) PLATELET COUNT (BEAKER) (test 133 K/CU MM 150-450 L code = 756) MEAN PLATELET VOLUME (BEAKER) 9.6 fL 9.4-12.4 (test code = 754) NUCLEATED RED BLOOD CELLS 0 /100 WBC 0-0 (BEAKER) (test code = 413) NEUTROPHILS RELATIVE PERCENT 63 % (BEAKER) (test code = 429) LYMPHOCYTES RELATIVE PERCENT 26 % (BEAKER) (test code = 430) MONOCYTES RELATIVE PERCENT 10 % (BEAKER) (test code = 431) EOSINOPHILS RELATIVE PERCENT 0 % (BEAKER) (test code = 432) BASOPHILS RELATIVE PERCENT 0 % (BEAKER) (test code = 437) NEUTROPHILS ABSOLUTE COUNT 3.61 K/ L 1.78-5.38 (BEAKER) (test code = 670) LYMPHOCYTES ABSOLUTE COUNT 1.51 K/ L 1.32-3.57 (BEAKER) (test code = 414) MONOCYTES ABSOLUTE COUNT (BEAKER) 0.56 K/ L 0.30-0.82 (test code = 415) EOSINOPHILS ABSOLUTE COUNT 0.00 K/ L 0.04-0.54 L (BEAKER) (test code = 416) BASOPHILS ABSOLUTE COUNT (BEAKER) 0.01 K/ L 0.01-0.08 (test code = 417) IMMATURE GRANULOCYTES-RELATIVE 0 % 0-1 PERCENT (BEAKER) (test code = 2801) POCT-GLUCOSE [id number] 23:59:30 Test Item Value Reference Range Interpretation Comments POC-GLUCOSE METER 178 mg/dL 70-110 H : TESTED A T [facility] 6720 (BEAKER) (test code = [place], 1538) [address]: Quality Control Lab Tech/Techni trinh ID = [id number] for JASMIN JALLOH RA
[2021-09-30 11:54] LABS: Hematocrit 30.9 % (39.6-49.0); Lymphocytes % 10.3 % (15.3-44.8); MPV 8.3 fL (7.6-11.3); RBC Red Blood Cell Count 3.01 M/uL (4.33-5.43)
--- NOTE | 2021-09-30 12:04 | RAD REPORT ---
EXAM DESCRIPTION: CT - Head Brain Wo Cont - 09/30/2021 11:23 am CLINICAL HISTORY: Brain neoplasm. Confusion COMPARISON: MRI July 2021 TECHNIQUE: Computed axial tomography of the head was obtained. IV contrast was not requested. All CT scans are performed using dose optimization technique as appropriate and may include automated exposure control or mA/KV adjustment according to patient size. FINDINGS: 3 centimeter low-density mass right parietal lobe with large amount of surrounding vasogen ic edema is without obvious change from the prior exam. Patient has known of bilateral cerebral and cerebellar metastases. Comparison to the prior exam is di fficult as the prior exam was an MRI with contrast. An intracranial bleed is not noted. No significant shift of midline structures. No hydrocephalus. Fluid within the mastoid/sinuses is not seen IMPRESSION: Right parietal metastasis with surrounding vasogenic edema is without obvious significan t change from the prior MRI although comparison is difficult. Patient's known additional bilateral cerebral/cerebellar metastases are not well depicted on this une nhanced CT scan. No intracranial bleed. No hydrocephalus. No shift of the midline structures.
[2021-09-30 12:13] LABS: Protime INR 1.03
[2021-09-30 12:16] LABS: Albumin 2.4 g/dL (3.4-5.0); Bilirubin Direct 0.1 mg/dL (0-0.2); Bilirubin Total 0.3 mg/dL (0.2-1.0); Potassium 5.3 mmol/L (3.5-5.1); Protein, Total 5.9 g/dL (6.4-8.2); Troponin (Emerg Dept Use Only) 0.31 ng/mL (0.0-0.045)
[2021-09-30] MEDS ORDERED: NA CHLORIDE 0.9% 500 ML ONE (12:23)
--- NOTE | 2021-09-30 12:53 | RAD REPORT ---
EXAM DESCRIPTION: Gerri Single View09/30/2021 11:36 am CLINICAL HISTORY: Chest pain COMPARISON: none FINDINGS: Postsurgical changes involve chest. A 6 centimeter right apical opacity. Right lung volume loss Left lung appears clear. Heart mildly enlarged IMPRESSION: 6 centimeter right apical opacity it may represent pleural/parenchymal scarring or a mas s. A CT chest is recommended
[2021-09-30] MEDS ORDERED: PIPERACIL/TAZO 3.375 GM VIAL IV ONE (13:43)
[2021-09-30] MEDS ORDERED: NA CHLORIDE 0.9% 1,000 ML ONE (13:43)
[2021-09-30] MEDS ORDERED: NA CHLORIDE 0.9% 50 ML ONE (13:44)
--- NOTE | 2021-09-30 13:44 | RAD REPORT ---
EXAM DESCRIPTION: CT - Thorax Wo Con - 09/30/2021 1:31 pm CLINICAL HISTORY: Possible lung mass COMPARISON: Chest Single View dated 09/30/2021 FINDINGS: Chest Wall: No suspicious thyroid nodules or pathologic lymphadenopathy. Lungs: Status post right upper lobectomy. Subpleural thickening in the right lower lobe with comet ta il consistent with round atelectasis. This is likely result of a chronic small right pleural effusion . 6 mm right lower lobe pulmonary nodule on image 27, series 5. Pleura: Small right pleural effusion, likely chronic. Mediastinum/elfego: No pathologic lymphadenopathy. Pulmonary arteries/Aorta: Limited evaluation without contrast. No aortic aneurysm. Heart: No significant pericardial effusion. Cardiomegaly. Multi-vessel coronary artery disease. Upper abdomen: No acute abnormality. Bones: Sternotomy. Bridging osteophytes are present in the spine. All CT scans are performed using dose optimization technique as appropriate and may include automated exposure control or mA/KV adjustment according to patient size. IMPRESSION: Status post right upper lobectomy. Complex right pleural effusion favored chronic with o verlying masslike pleural thickening in the right lower lobe that has an appearance typical of round atelectasis. 6 mm right lower lobe pulmonary nodule. No priors are available for comparison. If no pr iors can be obtained, suggest six-month follow-up chest CT.
--- NOTE | 2021-09-30 14:17 | RAD REPORT ---
EXAM DESCRIPTION: MRI - Brain Wo Cont - 09/30/2021 1:48 pm CLINICAL HISTORY: AMS COMPARISON: Head Brain Wo Cont dated 09/30/2021 outside MRI 07/2021 TECHNIQUE: Sagittal T1-weighted images were obtained along with PD/heavily T2-weighted and T2-FLAIR images. Axial DWI and ADC mapping sequences were also obtained along with coronal heavily T2-weighted images were obtained. No contrast was administered due to GFR. FINDINGS: 4.8 cm x 3.7 cm by 3.3 cm predominantly cystic lesion in the right parietal lobe is simila r. A small solid component medially has definitely decreased in size compared with the prior MRI. Vas ogenic edema extends from the right posterior frontal lobe into the parietal and lesser extent occipi naveed lobes. Decreased vasogenic edema in the bilateral cerebellar hemispheres as well as decrease in s ize of the cerebellar lesions. Other lesions noted in the left parietal, right frontal, and left fron naveed lobes which are grossly similar. Chronic small vessel ischemic changes are noted. No hydrocephalu s. Cerebral atrophy. No midline shift. Mastoid air cells and paranasal sinuses are clear. IMPRESSION: Intracranial metastatic disease which is not well assessed without contrast. Compared wi th the noncontrast MRI from 08/26/2021, mild improvement is noted with decreased vasogenic edema (par ticularly in the cerebellum) suggesting response to treatment. No new lesions identified.
[2021-09-30 15:03] LABS: Urine Blood Negative (Negative); Urine Glucose Negative (Negative); Urine Protein Negative (Negative)
[2021-09-30 15:15] LABS: Urine Bacteria <20 /HPF (NONE SEEN); Urine Mucus 1+ /HPF (NONE SEEN); Urine RBC <5 /HPF (NONE SEEN)
--- NOTE | 2021-09-30 15:26 | EDPHYS ---
Physician Documentation [facility] Name: Maurilio Vela Age: 85 yrs Sex: Male : 1935 Arrival Date: 09/30/2021 Time: 10:00 Bed 15 Private MD: Cesar Fontenot ED Physician Sundeep Bay HPI: 09/30 10:53 This 85 yrs old Male presents to ER via Wheelchair with complaints of Wound Check, pm1 Altered Mental Status. 10:53 The patient presents with confusion, out of it per . Onset: The symptoms/episode pm1 began/occurred last night. Possible causes: unknown, patient recent diagnosis of brain cancer on 08/26/2021. Associated signs and symptoms: Pertinent positives: chest pain, shortness of breath, Pertinent negatives: abdominal pain, diarrhea, nausea, vomiting, Fever. Current symptoms: In the emergency department the patient's symptoms have improved. Patient's baseline: Neuro: alert and fully oriented, Motor: no deficits, Speech: normal. Patient seen in ER 08/26/2021 and transferred to [facility]. Was discharged home on . Patient has appointments pending with Dr Ordonez next week. Patient has received radiation treatment for his lung and brain Ca. Patient with bilateral pressure sores to his heels that his home health nurse would like evaluated. Historical: - Allergies: 10:30 No Known Allergies; ll1 - PMHx: 10:30 brain/lung CA; Diabetes mellitus; ll1 - Immunization history:: Client reports having NOT received the Covid vaccine. - Social history:: Smoking status: Patient/guardian denies using tobacco, the patient reports quitting approximately 50 years ago. ROS: 10:53 Neck: Negative for injury, pain, and swelling. pm1 10:53 Abdomen/GI: Negative for abdominal pain, nausea, vomiting, diarrhea, and constipation, Back: Negative for injury and pain, MS/Extremity: Negative for injury and deformity. 10:53 Constitutional: Positive for poor PO intake, Negative for body aches, chills, fever. 10:53 Cardiovascular: Positive for occasional chest pain. 10:53 Respiratory: Positive for occasional SOB. 10:53 Skin: Positive for pressure ulcer present to bilateral heels. 10:53 Neuro: Positive for altered mental status, weakness, Negative for numbness, tingling. 10:53 All other systems are negative. Exam: 10:53 Constitutional: This is a well developed, well nourished patient who is awake, alert, pm1 and in no acute distress. Head/Face: Normocephalic, atraumatic. 10:53 Back: No spinal tenderness. No costovertebral tenderness. Full range of motion. Skin: Warm, dry with normal turgor. Normal color with no rashes, no lesions, and no evidence of cellulitis. MS/ Extremity: Pulses equal, no cyanosis. Neurovascular intact. Full, normal range of motion. 10:53 Eyes: Exam is negative for acute changes, Extraocular movements: no acute changes, Conjunctiva: no acute changes, no injection, Sclera: no acute changes, icterus, is not appreciated. 10:53 ENT: Exam is negative for acute changes, Mouth: no acute changes, Lips: normal, moist, Oral mucosa: normal, pink and intact, moist. 10:53 Cardiovascular: Exam negative for acute changes, Rate: normal, Rhythm: regular, Pulses: no pulse deficits are appreciated, Heart sounds: normal, normal S1and S2. 10:53 Respiratory: the patient does not display signs of respiratory distress, Respirations: normal, Breath sounds: decreased breath sounds, that are mild, are heard in the right posterior upper lobe. 10:53 Abdomen/GI: Exam negative for acute changes, Inspection: abdomen appears normal, Palpation: abdomen is soft and non-tender, in all quadrants. 10:53 Neuro: Orientation: is normal, Mentation: is normal, Motor: is normal, moves all fours. Vital Signs: 10:29 BP 93 / 45; Pulse 76; Resp 18; Temp 97.4; Pulse Ox 100% ; Weight 71.21 kg; Height 5 ft. ll1 9 in. (175.26 cm); Pain 0/10; 11:58 BP 112 / 74; Pulse 85; Resp 18; Pulse Ox 100% ; erickson 13:07 BP 117 / 50; Pulse 81; Resp 16; Pulse Ox 100% on R/A; erickson 14:18 BP 160 / 134; Pulse 68; Resp 16; Pulse Ox 99% ; erickson 16:02 BP 93 / 4 Supine; Pulse 66; Resp 16; Pulse Ox 99% on R/A; erickson 16:02 BP 127 / 49 Sitting; Pulse 73; Resp 18; Pulse Ox 99% on R/A; erickson 10:29 Body Mass Index 23.18 (71.21 kg, 175.26 cm) ll1 MDM: 10:35 Patient medically screened. pm1 11:03 Data interpreted: Pulse oximetry: on room air is 99 %. Interpretation: normal. pm1 12:42 ED course: Discussed current lab findings and results with patient and and plans pm1 for MRI today. 14:06 ED course: covering with Zosyn due to recent hospitalization due to pneumonia with pm1 complex pleural effusion. 15:17 Data reviewed: vital signs. pm1 15:23 Counseling: I had a detailed discussion with the patient and/or guardian regarding: the pm1 historical points, exam findings, and any diagnostic results supporting the discharge/admit diagnosis, lab results, radiology results, the need for further work-up and treatment in the hospital. 09/30 10:53 Order name: Basic Metabolic Panel; Complete Time: 12:16 pm1 09/30 10:53 Order name: Blood Culture Adult (2) pm1 09/30 10:53 Order name: CBC with Diff; Complete Time: 12:04 pm1 09/30 10:53 Order name: CPK; Complete Time: 12:16 pm1 09/30 10:53 Order name: LFT's; Complete Time: 12:16 pm1 09/30 10:53 Order name: Lactate; Complete Time: 12:52 pm1 09/30 10:53 Order name: Procalcitonin; Complete Time: 12:52 pm1 09/30 10:53 Order name: Protime (+inr); Complete Time: 12:16 pm1 09/30 10:53 Order name: Ptt, Activated; Complete Time: 12:16 pm1 09/30 10:53 Order name: Troponin (emerg Dept Use Only); Complete Time: 12:16 pm1 09/30 10:53 Order name: Urine Microscopic Only; Complete Time: 15:26 pm1 09/30 12:23 Order name: COVID-19/FLU A+B (Document "Date of Onset" if Symptomatic); Complete Time: pm1 17:08 09/30 15:01 Order name: Lactate Sepsis 2 HR Follow-up; Complete Time: 15:01 EDMS 09/30 15:03 Order name: Urine Dipstick-Ancillary; Complete Time: 15:04 EDMS 09/30 10:53 Order name: CT Head Brain wo Cont; Complete Time: 12:09 pm1 09/30 10:53 Order name: Orthostatic Blood Pressure; Complete Time: 16:07 pm1 09/30 10:53 Order name: Chest Single View XRAY; Complete Time: 12:53 pm1 09/30 10:53 Order name: Cardiac monitoring; Complete Time: 12:07 pm09/30 10:53 Order name: EKG - Nurse/Tech; Complete Time: 14:59 pm1 09/30 10:53 Order name: Labs collected and sent; Complete Time: 13:08 pm09/30 10:53 Order name: O2 Per Protocol; Complete Time: 13:08 pm1 09/30 12:17 Order name: MRI - Brain Wo Cont; Complete Time: 14:24 pm1 09/30 12:57 Order name: CT Chest Wo Con; Complete Time: 13:49 pm1 09/30 16:38 Order name: Diet Regular; Complete Time: 16:38 erickson 09/30 10:53 Order name: O2 Sat Monitoring; Complete Time: 13:08 pm09/30 10:53 Order name: Urine Dipstick-Ancillary (obtain specimen); Complete Time: 14:59 pm09/30 10:53 Order name: IV Saline Lock; Complete Time: 13:08 pm1 Administered Medications: 13:08 Drug: NS 0.9% 500 ml Route: IV; Rate: bolus; Site: left antecubital; erickson 15:29 Follow up: IV Status: Completed infusion erickson 13: Drug: NS 0.9% 1000 ml Route: IV; Rate: 100 ml/hr; Site: left antecubital; erickson 13:58 Drug: Zosyn (piperacillin-tazobactam) 4.5 grams Route: IVPB; Infused Over: 60 mins; erickson Site: left antecubital; 14:58 Follow up: IV Status: Completed infusion erickson 15:28 Follow up: IV Status: Completed infusion erickson 15:28 Drug: Aspirin 325 mg Route: PO; erickson 15:39 Follow up: Response: No adverse reaction erickson 15:28 Drug: Lovenox (enoxaparin) 1 mg/kg Route: Sub-Q; Site: left lower abdomen; erickson 15:28 Drug: NS 0.9% 500 ml Route: IV; Rate: bolus; Site: left antecubital; erickson 15:39 Drug: Lovenox (enoxaparin) 1 mg/kg Route: Sub-Q; Site: left lower abdomen; erickson 15:39 Follow up: Response: No adverse reaction erickson Disposition: 18:30 Co-signature as Attending Physician, Sundeep Bay MD. rn Disposition Summary: 09/30/21 15:25 Hospitalization Ordered Provider: Andrew Torres pm1 Condition: Stable pm1 Problem: new pm1 Symptoms: have improved pm1 Bed/Room Type: Standard pm1 Hospitalization Status: Observation(09/30/21 15:52) pm1 Location: Telemetry/MedSurg (observation)(09/30/21 15:52) pm1 Room Assignment: [facility] [place](09/30/21 17:18) [facility] Diagnosis - Altered mental status, unspecified pm1 - Pneumonia, unspecified organism pm1 - Elevated troponin pm1 - Dehydration pm1 Forms: - Medication Reconciliation Form pm1 - SBAR form pm1 Signatures: Dispatcher [employer] EDMS Sundeep Bay MD MD rn Marinas, Patrick, PROJECT DESIGNER PROJECT DESIGNER pm1 Arielle Jack RN RN [facility] Cherelle Wagner RN RN Corrections: (The following items were deleted from the chart) 15:12 10:53 Associated signs and symptoms: Pertinent negatives: abdominal pain, chest pain, pm1 diarrhea, nausea, shortness of breath, vomiting, Fever, pm1 15:52 15:25 Inpatient Admission pm1 pm1 15:52 15:25 Telemetry/MedSurg (Inpatient) pm1 pm1 15:52 15:25 pm1 pm1 17:18 15:52 pm1 ll1
--- NOTE | 2021-09-30 15:26 | ER ---
Nurse's Notes [facility] Name: Maurilio Vela Age: 85 yrs Sex: Male : 1935 Arrival Date: 09/30/2021 Time: 10:00 Bed 15 Private MD: Cesar Fontenot Diagnosis: Altered mental status, unspecified;Pneumonia, unspecified organism;Elevated troponin;Dehydration Presentation: 09/30 10:29 Chief complaint: Patient states: Confusion and lethargic for 1 day. Bilateral heel ll1 wounds that need to be checked, sent in by home health nurse. BP was very low yesterday. Coronavirus screen: Vaccine status: Patient reports being unvaccinated. Client denies travel out of the [place] in the last 14 days. At this time, the client does not indicate any symptoms associated with coronavirus-19. Ebola Screen: Patient denies travel to an Ebola-affected area in the 21 days before illness onset. Initial Sepsis Screen: Does the patient meet any 2 criteria? No. Patient's initial sepsis screen is negative. Risk Assessment: Do you want to hurt yourself or someone else? Patient reports no desire to harm self or others. Onset of symptoms was September 29, 2021. 10:29 Method Of Arrival: Wheelchair ll1 10:29 Acuity: FRANKY 3 ll1 12:06 Initial Sepsis Screen: Does the patient have a suspected source of infection? No. erickson Patient's initial sepsis screen is negative. Triage Assessment: 12:06 General: Appears Behavior is calm, cooperative. erickson Historical: - Allergies: 10:30 No Known Allergies; ll1 - PMHx: 10:30 brain/lung CA; Diabetes mellitus; ll1 - Immunization history:: Client reports having NOT received the Covid vaccine. - Social history:: Smoking status: Patient/guardian denies using tobacco, the patient reports quitting approximately 50 years ago. Screenin:01 Abuse screen: Denies threats or abuse. Denies injuries from another. Nutritional erickson screening: No deficits noted. Tuberculosis screening: No symptoms or risk factors identified. Fall Risk IV access (20 points). Mental Status- Overestimates/Forgets Limitations (15 pts.). Assessment: 12:01 Pain: Complains of pain in right foot and left foot Quality of pain is described as erickson pressure. Vital Signs: 10:29 BP 93 / 45; Pulse 76; Resp 18; Temp 97.4; Pulse Ox 100% ; Weight 71.21 kg; Height 5 ft. ll1 9 in. (175.26 cm); Pain 0/10; 11:58 BP 112 / 74; Pulse 85; Resp 18; Pulse Ox 100% ; erickson 13:07 BP 117 / 50; Pulse 81; Resp 16; Pulse Ox 100% on R/A; erickson 14:18 BP 160 / 134; Pulse 68; Resp 16; Pulse Ox 99% ; erickson 16:02 BP 93 / 4 Supine; Pulse 66; Resp 16; Pulse Ox 99% on R/A; erickson 16:02 BP 127 / 49 Sitting; Pulse 73; Resp 18; Pulse Ox 99% on R/A; erickson 10:29 Body Mass Index 23.18 (71.21 kg, 175.26 cm) ll1 ED Course: 10:00 Patient arrived in ED. as 10:01 Cesar Fontenot is Private Physician. as 10:30 Triage completed. ll1 10:32 Arm band placed on. ll1 10:34 Isaiah Bauman NP is PHCP. pm1 10:34 Sundeep Bay MD is Attending Physician. pm1 11:21 CT Head Brain wo Cont In Process Unspecified. EDMS 11:36 Chest Single View XRAY In Process Unspecified. EDMS 12:01 Patient has correct armband on for positive identification. Bed in low position. erickson 12:01 No provider procedures requiring assistance completed. Inserted saline lock: 20 gauge erickson antecubital area, using aseptic technique. 12:07 Basic Metabolic Panel Sent. erickson 12:07 Blood Culture Adult (2) Sent. erickson 12:07 CPK Sent. erickson 12:07 LFT's Sent. erickson 12:07 Lactate Sent. erickson 12:07 Procalcitonin Sent. erickson 12:07 Protime (+inr) Sent. erickson 12:07 Ptt, Activated Sent. erickson 12:08 Troponin (emerg Dept Use Only) Sent. erickson 12:23 Notified Nurse Practitioner and/or Physician Activities Volunteer of a critical lab result(s), ll1 lactic acid 2.3. 13:31 CT Chest Wo Con In Process Unspecified. EDMS 13:48 MRI - Brain Wo Cont In Process Unspecified. EDMS 14:59 Urine Microscopic Only Sent. erickson 15:25 Anderw Torres DO is Hospitalizing Provider. pm1 18:27 Patient admitted, IV remains in place. erickson Administered Medications: 13:08 Drug: NS 0.9% 500 ml Route: IV; Rate: bolus; Site: left antecubital; erickson 15:29 Follow up: IV Status: Completed infusion erickson 13:08 Drug: NS 0.9% 1000 ml Route: IV; Rate: 100 ml/hr; Site: left antecubital; erickson 13:58 Drug: Zosyn (piperacillin-tazobactam) 4.5 grams Route: IVPB; Infused Over: 60 mins; erickson Site: left antecubital; 14:58 Follow up: IV Status: Completed infusion erickson 15:28 Follow up: IV Status: Completed infusion erickson 15:28 Drug: Aspirin 325 mg Route: PO; erickson 15:39 Follow up: Response: No adverse reaction erickson 15:28 Drug: Lovenox (enoxaparin) 1 mg/kg Route: Sub-Q; Site: left lower abdomen; erickson 15:28 Drug: NS 0.9% 500 ml Route: IV; Rate: bolus; Site: left antecubital; erickson 15:39 Drug: Lovenox (enoxaparin) 1 mg/kg Route: Sub-Q; Site: left lower abdomen; erickson 15:39 Follow up: Response: No adverse reaction erickson Outcome: 15:25 Decision to Hospitalize by Provider. pm1 18:27 Admitted to Med/surg accompanied by tech, family with patient. erickson 18:27 Condition: good 18:27 Instructed on the need for admit. 18:27 Patient left the ED. erickson Signatures: Dispatcher [employer] Neris Carrington Patrick, [employer] PRODUCTION SUPERVISOR pm1 Arilele Jack, [place] RN 1 Cherelle Wagner RN RN erickson
[2021-09-30] MEDS ORDERED: ENOXAPARIN 80 MG/0.8 ML SQ ONE (15:32)
[2021-09-30] MEDS ORDERED: ASPIRIN 325 MG TAB ONE (15:32)
--- NOTE | 2021-09-30 16:08 | P.HP ---
Certification for Inpatient Patient admitted to: Observation With expected LOS: <2 Midnights Patient will require the following post-hospital care: None Practitioner: I am a practitioner with admitting privileges, knowledge of patient current condition, hospital course, and medical plan of care. Services: Services provided to patient in accordance with Admission requirements found in Title 42 Section 412.3 of the Code of Federal Regulations Patient History Date of Service: 09/30/21 Primary Care Provider: Dr. Fontenot Reason for admission: Weakness History of Present Illness: 85-year-old male with history of metastatic brain cancer on radiation therapy, hypertension, diabetes. Patient presented with weakness at home. There are some report of some confusion last night. Patient denies any fever, chills. He denies any chest pain or shortness of breath. He came to the ER due to increasing weakness. In the ER patient was evaluated. Vital signs currently stable. Patient initially had low blood pressure. Patient given fluid bolus in the ER with improvement. White count normal at 9.4, hemoglobin 10.5. Platelet count 122. Sodium 136, potassium 5.3. BUN 49, creatinine 1.99 with a GFR 32. Glucose 232. Troponin 0 0.31. Lactic acid 3.3. Procalcitonin 7.3. CT chest shows complex right pleural effusion with possible pneumonia. MRI shows improvement in edema from metastatic brain disease. Patient given IV fluid bolus in the ER. Patient started on antibiotic therapy. Patient admitted for further evaluation and treatment. Home medications list reviewed: Yes - Past Medical/Surgical History Diabetic: Yes -: Diabetes mellitus type 2 -: Hypertension -: Metastatic brain cancer on radiation therapy -: Right upper lung lobectomy -: Former tobacco use -: Right upper lung lobectomy Psychosocial/ Personal History: Patient is . Lives at home. - Family History Family History: Reviewed- Non-Contributory - Social History Smoking Status: Former smoker Alcohol use: No CD- Drugs: No Caffeine use: No Place of Residence: Home Review of Systems General: Weakness, As per HPI Eyes: Unremarkable ENT: Unremarkable Respiratory: Unremarkable Gastrointestinal: Unremarkable Genitourinary: Unremarkable Musculoskeletal: Pedal edema, As per HPI Integumentary: Unremarkable Neurological: Unremarkable Lymphatics: Unremarkable Physical Examination - Studies Laboratory Data (last 24 hrs) 09/30/21 11:30: PT 11.9, INR 1.03, APTT 29.2 09/30/21 11:30: WBC 9.40, Hgb 10.5 L, Hct 30.9 L, Plt Count 122 L 09/30/21 11:30: Sodium 136, Potassium 5.3 H, BUN 49 H, Creatinine 1.99 H, Glucose 232 H, Total Bilirubin 0.3, AST 22, ALT 34, Alkaline Phosphatase 129 H Assessment and Plan - Plan COVID: pending CXR: COMPARISON: none FINDINGS: Postsurgical changes involve chest. A 6 centimeter right apical opacity. Right lung volume loss Left lung appears clear. Heart mildly enlarged IMPRESSION: 6 centimeter right apical opacity it may represent pleural/parenchymal scarring or a mass. A CT chest is recommended CT head: COMPARISON: MRI July 2021 TECHNIQUE: Computed axial tomography of the head was obtained. IV contrast was not requested. All CT scans are performed using dose optimization technique as appropriate and may include automated exposure control or mA/KV adjustment according to patient size. FINDINGS: 3 centimeter low-density mass right parietal lobe with large amount of surrounding vasogenic edema is without obvious change from the prior exam. Patient has known of bilateral cerebral and cerebellar metastases. Comparison to the prior exam is difficult as the prior exam was an MRI with contrast. An intracranial bleed is not noted. No significant shift of midline structures. No hydrocephalus. Fluid within the mastoid/sinuses is not seen IMPRESSION: Right parietal metastasis with surrounding vasogenic edema is without obvious significant change from the prior MRI although comparison is difficult. Patient's known additional bilateral cerebral/cerebellar metastases are not well depicted on this unenhanced CT scan. No intracranial bleed. No hydrocephalus. No shift of the midline structures. MRI Brain: COMPARISON: Head Brain Wo Cont dated 09/30/2021 outside MRI 07/2021 TECHNIQUE: Sagittal T1-weighted images were obtained along with PD/heavily T2- weighted and T2-FLAIR images. Axial DWI and ADC mapping sequences were also obtained along with coronal heavily T2-weighted images were obtained. No contrast was administered due to GFR. FINDINGS: 4.8 cm x 3.7 cm by 3.3 cm predominantly cystic lesion in the right parietal lobe is similar. A small solid component medially has definitely decreased in size compared with the prior MRI. Vasogenic edema extends from the right posterior frontal lobe into the parietal and lesser extent occipital lobes. Decreased vasogenic edema in the bilateral cerebellar hemispheres as well as decrease in size of the cerebellar lesions. Other lesions noted in the left parietal, right frontal, and left frontal lobes which are grossly similar. Chronic small vessel ischemic changes are noted. No hydrocephalus. Cerebral atrophy. No midline shift. Mastoid air cells and paranasal sinuses are clear. IMPRESSION: Intracranial metastatic disease which is not well assessed without contrast. Compared with the noncontrast MRI from 08/26/2021, mild improvement is noted with decreased vasogenic edema (particularly in the cerebellum) suggesting response to treatment. No new lesions identified. CT chest: COMPARISON: Chest Single View dated 09/30/2021 FINDINGS: Chest Wall: No suspicious thyroid nodules or pathologic lymphadenopathy. Lungs: Status post right upper lobectomy. Subpleural thickening in the right lower lobe with comet tail consistent with round atelectasis. This is likely result of a chronic small right pleural effusion. 6 mm right lower lobe pulmonary nodule on image 27, series 5. Pleura: Small right pleural effusion, likely chronic. Mediastinum/elfego: No pathologic lymphadenopathy. Pulmonary arteries/Aorta: Limited evaluation without contrast. No aortic aneurysm. Heart: No significant pericardial effusion. Cardiomegaly. Multi-vessel coronary artery disease. Upper abdomen: No acute abnormality. Bones: Sternotomy. Bridging osteophytes are present in the spine. All CT scans are performed using dose optimization technique as appropriate and may include automated exposure control or mA/KV adjustment according to patient size. IMPRESSION: Status post right upper lobectomy. Complex right pleural effusion favored chronic with overlying masslike pleural thickening in the right lower lobe that has an appearance typical of round atelectasis. 6 mm right lower lobe pulmonary nodule. No priors are available for comparison. If no priors can be obtained, suggest six-month follow-up chest CT. Physical Exam: GENERAL: The patient is a well-developed, well-nourished, in no apparent distress. Alert and oriented x3. VITAL SIGNS: Reviewed HEENT: Head is normocephalic and atraumatic. Extraocular muscles are intact. Pupils are equal, round, and reactive to light and accommodation. Nares appeared normal. Mouth is well hydrated and without lesions. Mucous membranes are moist. NECK: Supple. No carotid bruits. No lymphadenopathy or thyromegaly. LUNGS: Slightly decreased to the right base HEART: Regular rate and rhythm, no appreciable gallops, rubs, murmurs or extra heart sounds ABDOMEN: Soft, nontender, and nondistended. Positive bowel sounds. No hep atosplenomegaly was noted. EXTREMITIES: Without any cyanosis, clubbing, rash, lesions or peripheral edema. NEUROLOGIC: The patient is oriented to person, place and time. Strength and sensation are grossly intact. Face is symmetric. SKIN: Mild pitting edema to the lower extremities bilateral Impression: Weakness secondary to right lower lobe pneumonia with complex right pleural effusion Acute on chronic renal disease stage III with dehydration, hyperkalemia Elevated troponin likely ischemic demand History of metastatic brain cancer currently on radiation therapy History of right upper lobectomy Hypertension Diabetes mellitus type 2 Anemia chronic disease Plan: Weakness secondary to right lower lobe pneumonia with complex right pleural effusion: Patient will be admitted for further evaluation and treatment. Patient to continue IV antibiotic therapy currently on Zosyn. Continue IV fluids. Patient given fluid bolus in the emergency room. Blood cultures and sputum cultures obtained. Will recheck chest x-ray tomorrow. Will consult pulmonology for recommendations. Possible home discharge if improved. Acute on chronic renal disease stage III with dehydration, hyperkalemia: Patient given IV fluids. We will continue with IV fluid. We will continue monitor. Electrolyte protocol in place. Elevated troponin likely ischemic demand: Elevated troponin likely ischemic demand. Will monitor this closely. Continue to monitor on telemetry. Will start aspirin 81 mg daily. Will check echocardiogram. Cardiology consulted for further recommendation. History of metastatic brain cancer currently on radiation therapy: Patient rece ntly started radiation therapy for metastatic brain cancer. Patient will follow up with radiation oncology and oncology. MRI brain shows improvement of vasogenic edema. History of right upper lobectomy: Overall stable Hypertension: Blood pressure initially low but improved. Hold off on blood pressure medication. Medications may need to be adjusted. Obtain verify home medication. Diabetes mellitus type 2: Continue Accu-Cheks and sliding scale. Anemia chronic disease: Monitor hemoglobin closely. Code Status: Patient is DO NOT RESUSCITATE DVT prophylaxis: Heparin Advanced Care Planning-30 minutes: Home at discharge Discharge Plan: Home Plan to discharge in: 48 Hours - Advance Directives Does patient have a Living Will: No Does patient have a Durable POA for Healthcare: No - Code Status/Comfort Care Code Status Assessed: Yes (Patient is DNR) Time Spent Managing Pts Care (In Minutes): 55
[2021-09-30 17:02] LABS: SARS-COV-2 RT PCR NEGATIVE (NEGATIVE)
[2021-09-30 18:27] VITALS: BMI 23.1
[2021-09-30] MEDS ORDERED: ONDANSETRON 4 MG/2 ML VIAL IV PRN (18:28)
[2021-09-30] MEDS: INSULIN -REGULAR HUMAN 50 UNIT/0.5 ML ML SQ SCH ×3 (18:28→23:25)
[2021-09-30] MEDS ORDERED: ACETAMINOPHEN 500 MG TAB PO PRN (18:28)
[2021-09-30] MEDS ORDERED: HYDRALAZINE HCL 20 MG/ML VIAL IV PRN (18:28)
[2021-09-30] MEDS ORDERED: cloNIDine HCL 0.1 MG TAB PO PRN (19:44)
[2021-09-30] MEDS ORDERED: dexAMETHasone 4 MG TAB PO SCH (20:00)
[2021-09-30] MEDS: PRIMIDONE 50 MG TAB PO SCH (20:55)
[2021-09-30] MEDS: PIPER TAZO 3.375 GM in NA CHLORIDE 0.9% 100 ML IV SCH (20:56)
[2021-09-30] MEDS: dexAMETHasone 4 MG TAB PO SCH (20:57)
[2021-09-30] MEDS: TAMSULOSIN 0.4 MG SR CAP PO SCH (20:57)
[2021-09-30] MEDS: HEPARIN 5000 UNIT/ML 1 ML VIAL SQ SCH (20:58)
[2021-09-30] MEDS: METOPROLOL TAR 25 MG TAB PO SCH (20:58)
[2021-09-30] MEDS: NA CHLORIDE 0.9% 1,000 ML IV SCH (20:59)
[2021-09-30] MEDS ORDERED: FINASTERIDE 5 MG TAB PO SCH (21:00)
[2021-09-30] MEDS ORDERED: ATORVASTATIN 20 MG TAB PO SCH (21:00)
[2021-09-30] MEDS ORDERED: lisinopriL 10 MG TAB PO SCH (21:00)
[2021-09-30] MEDS ORDERED: EZETIMIBE 10 MG TAB PO SCH (21:00)
[2021-09-30] MEDS ORDERED: ASPIRIN EC 325 MG TABLET PO SCH (21:00)
[2021-09-30 21:19] LABS: CKMB Creatine Kinase MB 2.3 ng/mL (1.0-3.6); Troponin I 0.34 ng/mL (0.0-0.045)
[2021-10-01] MEDS: dexAMETHasone 4 MG TAB PO SCH ×2 (03:01→12:13)
[2021-10-01] MEDS: NA CHLORIDE 0.9% 1,000 ML IV SCH (03:01)
[2021-10-01 06:11] LABS: Hematocrit 31.4 % (39.6-49.0); Lymphocytes % 12.5 % (15.3-44.8); MPV 8.5 fL (7.6-11.3); RBC Red Blood Cell Count 3.03 M/uL (4.33-5.43)
--- NOTE | 2021-10-01 06:11 | P.PN ---
Subjective Date of Service: 10/01/21 Primary Care Provider: Dr. Fontenot Chief Complaint: Weakness Subjective: Improving, Doing well Physical Examination - Vital Signs Temperature: 97.6 F Blood Pressure: 132/63 Pulse: 67 Respirations: 17 Pulse Ox (%): 95 - Studies Laboratory Data (last 24 hrs) 09/30/21 11:30: PT 11.9, INR 1.03, APTT 29.2 09/30/21 11:30: WBC 9.40, Hgb 10.5 L, Hct 30.9 L, Plt Count 122 L 09/30/21 11:30: Sodium 136, Potassium 5.3 H, BUN 49 H, Creatinine 1.99 H, Glucose 232 H, Total Bilirubin 0.3, AST 22, ALT 34, Alkaline Phosphatase 129 H Assessment & Plan Discharge Plan: Home Plan to discharge in: 24 Hours Physician Review Additional Text: COVID: negative CXR: COMPARISON: none FINDINGS: Postsurgical changes involve chest. A 6 centimeter right apical opacity. Right lung volume loss Left lung appears clear. Heart mildly enlarged IMPRESSION: 6 centimeter right apical opacity it may represent pleural/parenchymal scarring or a mass. A CT chest is recommended CT head: COMPARISON: MRI July 2021 TECHNIQUE: Computed axial tomography of the head was obtained. IV contrast was not requested. All CT scans are performed using dose optimization technique as appropriate and may include automated exposure control or mA/KV adjustment according to patient size. FINDINGS: 3 centimeter low-density mass right parietal lobe with large amount of surrounding vasogenic edema is without obvious change from the prior exam. Patient has known of bilateral cerebral and cerebellar metastases. Comparison to the prior exam is difficult as the prior exam was an MRI with contrast. An intracranial bleed is not noted. No significant shift of midline structures. No hydrocephalus. Fluid within the mastoid/sinuses is not seen IMPRESSION: Right parietal metastasis with surrounding vasogenic edema is without obvious significant change from the prior MRI although comparison is difficult. Patient's known additional bilateral cerebral/cerebellar metastases are not well depicted on this unenhanced CT scan. No intracranial bleed. No hydrocephalus. No shift of the midline structures. MRI Brain: COMPARISON: Head Brain Wo Cont dated 09/30/2021 outside MRI 07/2021 TECHNIQUE: Sagittal T1-weighted images were obtained along with PD/heavily T2- weighted and T2-FLAIR images. Axial DWI and ADC mapping sequences were also obtained along with coronal heavily T2-weighted images were obtained. No contrast was administered due to GFR. FINDINGS: 4.8 cm x 3.7 cm by 3.3 cm predominantly cystic lesion in the right parietal lobe is similar. A small solid component medially has definitely decreased in size compared with the prior MRI. Vasogenic edema extends from the right posterior frontal lobe into the parietal and lesser extent occipital lobes. Decreased vasogenic edema in the bilateral cerebellar hemispheres as well as decrease in size of the cerebellar lesions. Other lesions noted in the left parietal, right frontal, and left frontal lobes which are grossly similar. Chronic small vessel ischemic changes are noted. No hydrocephalus. Cerebral atrophy. No midline shift. Mastoid air cells and paranasal sinuses are clear. IMPRESSION: Intracranial metastatic disease which is not well assessed without contrast. Compared with the noncontrast MRI from 08/26/2021, mild improvement is noted with decreased vasogenic edema (particularly in the cerebellum) suggesting response to treatment. No new lesions identified. CT chest: COMPARISON: Chest Single View dated 09/30/2021 FINDINGS: Chest Wall: No suspicious thyroid nodules or pathologic lymphadenopathy. Lungs: Status post right upper lobectomy. Subpleural thickening in the right lower lobe with comet tail consistent with round atelectasis. This is likely res ult of a chronic small right pleural effusion. 6 mm right lower lobe pulmonary nodule on image 27, series 5. Pleura: Small right pleural effusion, likely chronic. Mediastinum/elfego: No pathologic lymphadenopathy. Pulmonary arteries/Aorta: Limited evaluation without contrast. No aortic aneurysm. Heart: No significant pericardial effusion. Cardiomegaly. Multi-vessel coronary artery disease. Upper abdomen: No acute abnormality. Bones: Sternotomy. Bridging osteophytes are present in the spine. All CT scans are performed using dose optimization technique as appropriate and may include automated exposure control or mA/KV adjustment according to patient size. IMPRESSION: Status post right upper lobectomy. Complex right pleural effusion favored chronic with overlying masslike pleural thickening in the right lower lobe that has an appearance typical of round atelectasis. 6 mm right lower lobe pulmonary nodule. No priors are available for comparison. If no priors can be obtained, suggest six-month follow-up chest CT. Physical Exam: GENERAL: The patient is a well-developed, well-nourished, in no apparent distress. Alert and oriented x3. VITAL SIGNS: Reviewed HEENT: Head is normocephalic and atraumatic. Extraocular muscles are intact. Pupils are equal, round, and reactive to light and accommodation. Nares appeared normal. Mouth is well hydrated and without lesions. Mucous membranes are moist. NECK: Supple. No carotid bruits. No lymphadenopathy or thyromegaly. LUNGS: Better air movement bilateral. Currently on room air. HEART: Regular rate and rhythm, no appreciable gallops, rubs, murmurs or extra heart sounds ABDOMEN: Soft, nontender, and nondistended. Positive bowel sounds. No hepatosplenomegaly was noted. EXTREMITIES: Without any cyanosis, clubbing, rash, lesions or peripheral edema. NEUROLOGIC: The patient is oriented to person, place and time. Strength and sensation are grossly intact. Face is symmetric. SKIN: No edema to the lower extremity Impression: Weakness secondary to right lower lobe pneumonia with complex right pleural effusion Acute on chronic renal disease stage III with dehydration, hyperkalemia Elevated troponin likely ischemic demand History of metastatic brain cancer currently on radiation therapy History of right upper lobectomy Hypertension Diabetes mellitus type 2 Anemia chronic disease Plan: Weakness secondary to right lower lobe pneumonia with complex right pleural effusion: Patient much improved. Spoke with cardiology and pulmonology. No cardiac intervention required. Cardiology recommends Levaquin at discharge. Patient can follow-up with pulmonology as an outpatient to further monitor and address. Encourage oral intake. Acute on chronic renal disease stage III with dehydration, hyperkalemia: Improved. Back to baseline. Encourage oral intake. Will discontinue lisinopril at discharge. Elevated troponin likely ischemic demand: Elevated troponin likely ischemic demand. Echo unremarkable. Case discussed with cardiology. No intervention required. History of metastatic brain cancer currently on radiation therapy: Patient recently started radiation therapy for metastatic brain cancer. Patient will follow up with radiation oncology and oncology. MRI brain shows improvement of vasogenic edema. Continue Decadron at discharge History of right upper lobectomy: Overall stable Hypertension: Blood pressure medication adjusted. Discontinue lisinopril due to his chronic renal disease and hyperkalemia. Continue metoprolol at discharge. Parameters in place. Diabetes mellitus type 2: Continue Accu-Cheks and sliding scale. Anemia chronic disease: Monitor hemoglobin closely. Code Status: Patient is DO NOT RESUSCITATE DVT prophylaxis: Heparin Advanced Care Planning-30 minutes: Arrange for home health and physical therapy at discharge. Time Spent Managing Pts Care (In Minutes): 55
[2021-10-01 06:35] LABS: Potassium 5.2 mmol/L (3.5-5.1); Thyroid Stimulating Hormone 3.55 uIU/mL (0.360-3.740)
[2021-10-01] MEDS: INSULIN -REGULAR HUMAN 50 UNIT/0.5 ML ML SQ SCH ×2 (07:30→11:30)
[2021-10-01] MEDS ORDERED: ASPIRIN EC 81 MG TAB PO SCH (09:00)
[2021-10-01] MEDS ORDERED: THIAMINE HCL 100 MG TABLET PO SCH (09:00)
[2021-10-01] MEDS ORDERED: SITAGLIPTIN PHOS 100 MG TAB PO SCH (09:00)
[2021-10-01] MEDS ORDERED: FOLIC ACID 1 MG TABLET PO SCH (09:00)
[2021-10-01] MEDS: PIPER TAZO 3.375 GM in NA CHLORIDE 0.9% 100 ML IV SCH (09:25)
[2021-10-01] MEDS: PRIMIDONE 50 MG TAB PO SCH ×2 (09:26→14:50)
[2021-10-01] MEDS: METOPROLOL TAR 25 MG TAB PO SCH (09:26)
[2021-10-01] MEDS: TAMSULOSIN 0.4 MG SR CAP PO SCH (09:27)
[2021-10-01] MEDS: HEPARIN 5000 UNIT/ML 1 ML VIAL SQ SCH (09:27)
--- NOTE | 2021-10-01 11:24 | EKG ---
Test Date: 2021-09-30 Test Time: 14:47:56 [employer]: ANA MEASUREMENT RESULTS: Intervals: Rate: 70 MO: 140 QRSD: 128 QT: 410 QTc: 442 [place]: P: 35 MO: 140 QRS: 9 T: 27 INTERPRETIVE STATEMENTS: Sinus rhythm with occasional premature ventricular complexes Right bundle branch block Abnormal ECG No previous ECG available for comparison Electronically Signed On 10-01-21 11:22:22 [employer] by Joe Burton
--- NOTE | 2021-10-01 11:28 | ECHO ---
HEIGHT: 5 ft 9 in WEIGHT: 162 lb 8 oz DATE OF STUDY: 10/01/[address]: Andrew Torres DO 2-DIMENSIONAL: YES M.MODE: YES DOPPLER: YES COLOR FLOW: YES TDS: PORTABLE: DEFINITY: BUBBLE STUDY: DIAGNOSIS: ELEVATED TROPONIN, HISTORY OF HYPERTENSION CARDIAC HISTORY: CATHERIZATION: NO SURGERY: YES PROSTHETIC VALVE: NO PACEMAKER: NO MEASUREMENTS (cm) DIASTOLIC (NORMALS) SYSTOLIC (NORMALS) IVSd 1.0 (0.6-1.2) LA Diam 3.0 (1.9-4.0) LVEF 55-60% LVIDd 3.7 (3.5-5.7) LVIDs 2.8 (2.0-3.5) %FS 24% LVPWd 1.1 (0.6-1.2) Ao Diam 2.8 (2.0-3.7) 2 DIMENSIONAL ASSESSMENT: RIGHT ATRIUM: NORMAL LEFT ATRIUM: NORMAL RIGHT VENTRICLE: NORMAL LEFT VENTRICLE: NORMAL TRICUSPID VALVE: NORMAL MITRAL VALVE: MITRAL ANNULAR CALCIFICATION PULMONIC VALVE: NORMAL AORTIC VALVE: SCLEROTIC PERICARDIAL EFFUSION: NONE AORTIC ROOT: NORMAL LEFT VENTRICULAR WALL MOTION: NORMAL DOPPLER/COLOR FLOW: MILD TRICUSPID REGURGITATION COMMENTS: AORTIC SCLEROSIS - NO STENOSIS. MITRAL ANNULAR CALCIFICATION. NORMAL LEFT VENTRICULAR SIZE AND FUNCTION. NO WALL MOTION ABNORMALITY. NO EFFUSION. TECHNOLOGIST: ANISHA BOWER
[2021-10-01] MEDS ORDERED: HYDROCODONE/APAP 5/325 MG TAB PO PRN (12:15)
--- NOTE | 2021-10-01 12:54 | P.DS ---
Admission Date: 09/30/21 Discharge Date: 10/01/21 Primary Care Provider: Dr. Fontenot Disposition: DC HOME/HOME HEALTH CARE Discharge Condition: GOOD Reason for Admission: Weakness Consultations: Pulmonary-Dr. Chadwick Cardiology-Dr. Burton Nephrology-Dr. Beach Procedures: COVID: negative CXR: COMPARISON: none FINDINGS: Postsurgical changes involve chest. A 6 centimeter right apical opacity. Right lung volume loss Left lung appears clear. Heart mildly enlarged IMPRESSION: 6 centimeter right apical opacity it may represent pleural/parenchymal scarring or a mass. A CT chest is recommended CT head: COMPARISON: MRI July 2021 TECHNIQUE: Computed axial tomography of the head was obtained. IV contrast was not requested. All CT scans are performed using dose optimization technique as appropriate and may include automated exposure control or mA/KV adjustment according to patient size. FINDINGS: 3 centimeter low-density mass right parietal lobe with large amount of surrounding vasogenic edema is without obvious change from the prior exam. Patient has known of bilateral cerebral and cerebellar metastases. Comparison to the prior exam is difficult as the prior exam was an MRI with contrast. An intracranial bleed is not noted. No significant shift of midline structures. No hydrocephalus. Fluid within the mastoid/sinuses is not seen IMPRESSION: Right parietal metastasis with surrounding vasogenic edema is without obvious significant change from the prior MRI although comparison is difficult. Patient's known additional bilateral cerebral/cerebellar metastases are not well depicted on this unenhanced CT scan. No intracranial bleed. No hydrocephalus. No shift of the midline structures. MRI Brain: COMPARISON: Head Brain Wo Cont dated 09/30/2021 outside MRI 07/2021 TECHNIQUE: Sagittal T1-weighted images were obtained along with PD/heavily T2- weighted and T2-FLAIR images. Axial DWI and ADC mapping sequences were also obtained along with coronal heavily T2-weighted images were obtained. No contrast was administered due to GFR. FINDINGS: 4.8 cm x 3.7 cm by 3.3 cm predominantly cystic lesion in the right parietal lobe is similar. A small solid component medially has definitely decrea sed in size compared with the prior MRI. Vasogenic edema extends from the right posterior frontal lobe into the parietal and lesser extent occipital lobes. Decreased vasogenic edema in the bilateral cerebellar hemispheres as well as decrease in size of the cerebellar lesions. Other lesions noted in the left parietal, right frontal, and left frontal lobes which are grossly similar. Chronic small vessel ischemic changes are noted. No hydrocephalus. Cerebral atrophy. No midline shift. Mastoid air cells and paranasal sinuses are clear. IMPRESSION: Intracranial metastatic disease which is not well assessed without contrast. Compared with the noncontrast MRI from 08/26/2021, mild improvement is noted with decreased vasogenic edema (particularly in the cerebellum) suggesting response to treatment. No new lesions identified. CT chest: COMPARISON: Chest Single View dated 09/30/2021 FINDINGS: Chest Wall: No suspicious thyroid nodules or pathologic lymphadenopathy. Lungs: Status post right upper lobectomy. Subpleural thickening in the right lower lobe with comet tail consistent with round atelectasis. This is likely result of a chronic small right pleural effusion. 6 mm right lower lobe pulmonary nodule on image 27, series 5. Pleura: Small right pleural effusion, likely chronic. Mediastinum/elfego: No pathologic lymphadenopathy. Pulmonary arteries/Aorta: Limited evaluation without contrast. No aortic aneurysm. Heart: No significant pericardial effusion. Cardiomegaly. Multi-vessel coronary artery disease. Upper abdomen: No acute abnormality. Bones: Sternotomy. Bridging osteophytes are present in the spine. All CT scans are performed using dose optimization technique as appropriate and may include automated exposure control or mA/KV adjustment according to patient size. IMPRESSION: Status post right upper lobectomy. Complex right pleural effusion favored chronic with overlying masslike pleural thickening in the right lower lobe that has an appearance typical of round atelectasis. 6 mm right lower lobe pulmonary nodule. No priors are available for comparison. If no priors can be obtained, suggest six-month follow-up chest CT. ECHO: MEASUREMENTS (cm) DIASTOLIC (NORMALS) SYSTOLIC (NORMALS) IVSd 1.0 (0.6-1.2) LA Diam 3.0 (1.9-4.0) LVEF 55-60% LVIDd 3.7 (3.5-5.7) LVIDs 2.8 (2.0-3.5) %FS 24% LVPWd 1.1 (0.6-1.2) Ao Diam 2.8 (2.0-3.7) 2 DIMENSIONAL ASSESSMENT: RIGHT ATRIUM: NORMAL LEFT ATRIUM: NORMAL RIGHT VENTRICLE: NORMAL LEFT VENTRICLE: NORMAL TRICUSPID VALVE: NORMAL MITRAL VALVE: MITRAL ANNULAR CALCIFICATION PULMONIC VALVE: NORMAL AORTIC VALVE: SCLEROTIC PERICARDIAL EFFUSION: NONE AORTIC ROOT: NORMAL LEFT VENTRICULAR WALL MOTION: NORMAL DOPPLER/COLOR FLOW: MILD TRICUSPID REGURGITATION COMMENTS: AORTIC SCLEROSIS NO STENOSIS. MITRAL ANNULAR CALCIFICATION. NORMAL LEFT VENTRICULAR SIZE AND FUNCTION. NO WALL MOTION ABNORMALITY. NO EFFUSION. Medical Problem list: Weakness secondary to right lower lobe pneumonia with complex right pleural effusion Acute on chronic renal disease stage III with dehydration, hyperkalemia Elevated troponin likely ischemic demand History of metastatic brain cancer currently on radiation therapy and oral steroid History of right upper lobectomy Hypertension Diabetes mellitus type 2 Anemia chronic disease BPH Essential tremor Hyperlipidemia Brief History of Present Illness: 85-year-old male with history of metastatic brain cancer on radiation therapy, hypertension, diabetes. Patient presented with weakness at home. There are some report of some confusion last night. Patient denies any fever, chills. He denies any chest pain or shortness of breath. He came to the ER due to increasing weakness. In the ER patient was evaluated. Vital signs currently stable. Patient initially had low blood pressure. Patient given fluid bolus in the ER with improvement. White count normal at 9.4, hemoglobin 10.5. Platelet count 122. Sodium 136, potassium 5.3. BUN 49, creatinine 1.99 with a GFR 32. Glucose 232. Troponin 0 0.31. Lactic acid 3.3. Procalcitonin 7.3. CT chest shows complex right pleural effusion with possible pneumonia. MRI shows improvement in edema from metastatic brain disease. Patient given IV fluid bolus in the ER. Patient started on antibiotic therapy. Patient admitted for further evaluation and treatment. Hospital Course: Patient presented with weakness and mild shortness of breath. Patient found to have right lower lobe pneumonia with complex right pleural effusion. Patient also had acute on chronic renal disease stage III with dehydration and hyperkalemia. Patient was admitted for further evaluation and treatment. Sabrina ent given IV antibiotic therapy and IV fluids with improvement. Case discussed with pulmonology. No further intervention required. Patient on room air. Patient without shortness of breath. Patient worked with physical therapy with noted improvement. At discharge patient will continue with Levaquin 500 mg every 48 hours up to 4 doses to cover the pneumonia. Recommend follow-up with pulmonology in 1 week to follow-up this hospitalization and to monitor his care. Recommend to recheck chest x-ray in 2 to 4 weeks to monitor resolution. Patient with acute on chronic renal disease stage III with dehydration and hyperkalemia. This improved with IV fluids. Lisinopril was also discontinued as this may cause hyperkalemia. Patient improved. Patient doing well. At discharge recommend to discontinue lisinopril. Recommend to recheck labBMP in 1 week to monitor his progress. Recommend no further use of nonsteroidal anti- inflammatories. Future medications may need to be renally dosed. Patient may follow-up with nephrology as an outpatient to further monitor and adjust medication. Patient had elevated troponin likely ischemic demand. Echocardiogram shows normal ejection fraction. Mild aortic sclerosis noted without stenosis. Cardiology evaluated patient. No intervention required. Patient may follow-up with cardiology as an outpatient. At discharge patient will continue with aspirin 325 mg daily. Patient with hypertension. Blood pressure initially low. Medications have been adjusted. As recommended above lisinopril discontinued due to his chronic renal disease and noted hyperkalemia. Hyperkalemia resolved. All medications were reviewed. Patient had been taking clonidine as needed. Patient also takes metoprolol. At discharge patient will only continue with metoprolol 25 mg 1 pill twice daily. Recommend to monitor blood pressure daily. Recommend to maintain blood pressure less than 130/80. May need to hold medication if blood pressure systolic less than 110. If blood pressure remains above 140/90 further adjustment in metoprolol can be done with the help of his PCP. As recommended above recommend to discontinue lisinopril and clonidine at discharge. Recommend follow-up with PCP to further monitor and adjust medication. Patient with diabetes mellitus type 2. Blood sugar stable. At discharge patient will continue with Januvia 50 mg daily. Recommend to maintain blood sugar less than 140 fasting and less than 200 after meals. Encourage oral intake. If with decreased supplementation patient may continue with Glucerna 1 bottle twice daily. Recommend to recheck hemoglobin A1c every 3 months to monitor his progress. Recommend follow-up with PCP to further monitor and adjust medication. Patient with hyperlipidemia. At discharge patient will continue with Zetia 10 mg daily and Zocor 40 mg daily. Patient with history of metastatic brain cancer currently on radiation therapy. Patient is taking dexamethasone due to his edema. MRI shows improvement from prior study. Patient will continue with Decadron 4 mg 3 times a day until this is tapered off. Patient follows up with radiation oncology soon. Patient will also establish care with oncology in the area. Patient reports history of right upper lung lobectomy. Overall stable. Further care can be addressed by radiation oncology and oncology. Patient may continue with folic acid 1 mg daily. Patient with BPH. At discharge patient will continue with Proscar 5 mg daily and Flomax 0.4 mg 1 pill twice daily. Patient with history of tremor. At discharge patient may continue with primidone 100 mg 1 pill 3 times a day. Recommend follow-up with neurology to further monitor and adjust medication. Patient with anemia of chronic disease. Overall stable. At discharge patient may continue with multivitamin daily and folic acid 1 mg daily. Recommend to recheck CBC in 2 to 4 weeks to monitor his progress. Patient worked with physical therapy. At discharge home health and physical therapy to be arranged. Also prior to discharge wound care to evaluate heels. Prevention of pressure ulcers addressed in detail. Continue with conservative measures. Patient may follow-up at the wound care center to further monitor. Vital Signs/Physical Exam: Temp Pulse Resp BP Pulse Ox 97.6 F 67 17 132/63 95 10/01/21 12:46 10/01/21 12:46 10/01/21 12:46 10/01/21 12:46 10/01/21 12:46 General: Alert, In no apparent distress, Oriented x3, Cooperative HEENT: Atraumatic Neck: Supple Respiratory: Clear to auscultation bilaterally, Normal air movement Cardiovascular: Normal pulses, Regular rate/rhythm Gastrointestinal: Normal bowel sounds, No tenderness, No masses, No rebound, No guarding Musculoskeletal: No erythema, No tenderness, No warmth Integumentary: No tenderness/swelling, No erythema, No warmth, No cyanosis Neurological: Normal speech, Normal strength at 5/5 x4 extr, Normal tone, Normal affect Laboratory Data at Discharge: WBC 7.70 K/uL (4.3-10.9) D 10/01/21 05:59 Hgb 10.4 g/dL (13.6-17.9) L 10/01/21 05:59 Hct 31.4 % (39.6-49.0) L 10/01/21 05:59 Plt Count 116 K/uL (152-406) L 10/01/21 05:59 PT 11.9 SECONDS (9.5-12.5) 09/30/21 11:30 INR 1.03 09/30/21 11:30 APTT 29.2 SECONDS (24.3-36.9) 09/30/21 11:30 Sodium 138 mmol/L (136-145) 10/01/21 05:59 Potassium 4.9 mmol/L (3.5-5.1) 10/01/21 07:39 BUN 46 mg/dL (7-18) H 10/01/21 05:59 Creatinine 1.75 mg/dL (0.55-1.3) H 10/01/21 05:59 Glucose 200 mg/dL (74-106) H 10/01/21 05:59 Magnesium 2.0 mg/dL (1.8-2.4) 10/01/21 05:59 Total Bilirubin 0.3 mg/dL (0.2-1.0) 09/30/21 11:30 AST 22 U/L (15-37) 09/30/21 11:30 ALT 34 U/L (12-78) 09/30/21 11:30 Alkaline Phosphatase 129 U/L (45-117) H 09/30/21 11:30 Troponin I 0.34 ng/mL (0.0-0.045) H 09/30/21 20:42 Triglycerides 104 mg/dL (<150) 10/01/21 05:59 Cholesterol 141 mg/dL (<200) 10/01/21 05:59 HDL Cholesterol 61 mg/dL (40-60) H 10/01/21 05:59 Cholesterol/HDL Ratio 2.31 10/01/21 05:59 Home Medications: Aspirin [Aspirin EC 325 MG] 325 mg PO BEDTIME 09/30/21 Ezetimibe [Zetia*] 10 mg PO BEDTIME 09/30/21 Finasteride [Proscar*] 5 mg PO BEDTIME 09/30/21 Hydrocodone 5/APAP 325 [[place] 5/325*] 1 tab PO Q4HP PRN 09/30/21 Metoprolol Tartrate [Lopressor*] 25 mg PO BID 09/30/21 Ondansetron [Zofran (Odt)*] 4 mg PO Q8HP PRN 09/30/21 Primidone [Mysoline *] 100 mg PO TID 09/30/21 Simvastatin 40 mg PO BEDTIME 09/30/21 Sitagliptin Phosphate [Januvia] 50 mg PO DAILY 09/30/21 Tamsulosin HCl [Flomax] 0.4 mg PO BID 09/30/21 Vit C/E/Zn/Coppr/Lutein/Zeaxan [Preservision Areds 2 Softgel] 1 each PO BID 09/30/21 dexAMETHasone [Dexamethasone] 4 mg PO Q8H 09/30/21 Folic Acid 1 mg PO DAILY #90 tablet 10/01/21 Nut.tx.gluc.intoler,Lac-Fr,Soy [Glucerna] 237 ml PO BID #60 liquid 10/01/21 levoFLOXacin [Levaquin] 500 mg PO Q48H #4 tab 10/01/21 New Medications: Folic Acid 1 mg PO DAILY #90 tablet Nut.tx.gluc.intoler,Lac-Fr,Soy [Glucerna] 237 ml PO BID #60 liquid levoFLOXacin [Levaquin] 500 mg PO Q48H #4 tab Physician Discharge Instructions: Patient presented with weakness and mild shortness of breath. Patient found to have right lower lobe pneumonia with complex right pleural effusion. Patient also had acute on chronic renal disease stage III with dehydration and hyperkalemia. Patient was admitted for further evaluation and treatment. Patient given IV antibiotic therapy and IV fluids with improvement. Case discussed with pulmonology. No further intervention required. Patient on room air. Patient without shortness of breath. Patient worked with physical therapy with noted improvement. At discharge patient will continue with Levaquin 500 mg every 48 hours up to 4 doses to cover the pneumonia. Recommend follow-up with pulmonology in 1 week to follow-up this hospitalization and to monitor his care. Recommend to recheck chest x-ray in 2 to 4 weeks to monitor resolution. Patient with acute on chronic renal disease stage III with dehydration and hyperkalemia. This improved with IV fluids. Lisinopril was also discontinued as this may cause hyperkalemia. Patient improved. Patient doing well. At discharge recommend to discontinue lisinopril. Recommend to recheck labBMP in 1 week to monitor his progress. Recommend no further use of nonsteroidal anti- inflammatories. Future medications may need to be renally dosed. Patient may follow-up with nephrology as an outpatient to further monitor and adjust medication. Encourage oral intake. Patient had elevated troponin likely ischemic demand. Echocardiogram shows normal ejection fraction. Mild aortic sclerosis noted without stenosis. Cardiology evaluated patient. No intervention required. Patient may follow-up with cardiology as an outpatient. At discharge patient will continue with aspirin 325 mg daily. Patient with hypertension. Blood pressure initially low. Medications have been adjusted. As recommended above lisinopril discontinued due to his chronic renal disease and noted hyperkalemia. Hyperkalemia resolved. All medications were reviewed. Patient had been taking clonidine as needed. Patient also takes metoprolol. At discharge patient will only continue with metoprolol 25 mg 1 pill twice daily. Recommend to monitor blood pressure daily. Recommend to maintain blood pressure less than 130/80. May need to hold medication if blood pressure systolic less than 110. If blood pressure remains above 140/90 further adjustment in metoprolol can be done with the help of his PCP. As recommended above recommend to discontinue lisinopril and clonidine at discharge. Recommend follow-up with PCP to further monitor and adjust medication. Patient with diabetes mellitus type 2. Blood sugar stable. At discharge patient will continue with Januvia 50 mg daily. Recommend to maintain blood sugar less than 140 fasting and less than 200 after meals. Encourage oral intake. If with decreased supplementation patient may continue with Glucerna 1 bottle twice daily. Recommend to recheck hemoglobin A1c every 3 months to monitor his progress. Recommend follow-up with PCP to further monitor and adjust medication. Patient with hyperlipidemia. At discharge patient will continue with Zetia 10 mg daily and Zocor 40 mg daily. Patient with history of metastatic brain cancer currently on radiation therapy. Patient is taking dexamethasone due to his edema. MRI shows improvement from prior study. Patient will continue with Decadron 4 mg 3 times a day until this is tapered off. Patient follows up with radiation oncology soon. Patient will also establish care with oncology in the area. Patient reports history of right upper lung lobectomy. Overall stable. Further care can be addressed by radiation oncology and oncology. Patient may continue with folic acid 1 mg daily. Patient with BPH. At discharge patient will continue with Proscar 5 mg daily and Flomax 0.4 mg 1 pill twice daily. Patient with history of tremor. At discharge patient may continue with primidone 100 mg 1 pill 3 times a day. Recommend follow-up with neurology to further monitor and adjust medication. Patient with anemia of chronic disease. Overall stable. At discharge patient may continue with multivitamin daily and folic acid 1 mg daily. Recommend to re check CBC in 2 to 4 weeks to monitor his progress. Patient worked with physical therapy. At discharge home health and physical therapy to be arranged. Also prior to discharge wound care to evaluate heels. Prevention of pressure ulcers addressed in detail. Continue with conservative measures. Patient may follow-up at the wound care center to further monitor. Diet: ADA Activity: Fall precautions Followup: HARSHA MCLEOD [Primary Care Provider] - Time spent managing pt's care (in minutes): 55
--- NOTE | 2021-10-01 15:54 | P.CNS ---
Date of Consult: 10/01/21 Reason for Consult: Poss pneumonia Primary Care Provider: Dr. Fontenot Chief Complaint: Weakness History of Present Illness: AGe 85 AW AMS metastatic brain cancer on rad , HTN and diabetes. Denies SOB or cough More aler now Allergies No Known Allergies Allergy (Unverified 10/01/21 09:46) Home Medications: Aspirin [Aspirin EC 325 MG] 325 mg PO BEDTIME 09/30/21 Ezetimibe [Zetia*] 10 mg PO BEDTIME 09/30/21 Finasteride [Proscar*] 5 mg PO BEDTIME 09/30/21 Hydrocodone 5/APAP 325 [[place] 5/325*] 1 tab PO Q4HP PRN 09/30/21 Metoprolol Tartrate [Lopressor*] 25 mg PO BID 09/30/21 Ondansetron [Zofran (Odt)*] 4 mg PO Q8HP PRN 09/30/21 Primidone [Mysoline *] 100 mg PO TID 09/30/21 Simvastatin 40 mg PO BEDTIME 09/30/21 Sitagliptin Phosphate [Januvia] 50 mg PO DAILY 09/30/21 Tamsulosin HCl [Flomax] 0.4 mg PO BID 09/30/21 Vit C/E/Zn/Coppr/Lutein/Zeaxan [Preservision Areds 2 Softgel] 1 each PO BID 09/30/21 dexAMETHasone [Dexamethasone] 4 mg PO Q8H 09/30/21 Folic Acid 1 mg PO DAILY #90 tablet 10/01/21 Metoprolol Tartrate [Lopressor*] 25 mg PO BID #60 tab 10/01/21 Nut.tx.gluc.intoler,Lac-Fr,Soy [Glucerna] 237 ml PO BID #60 liquid 10/01/21 levoFLOXacin [Levaquin] 500 mg PO Q48H #4 tab 10/01/21 - Past Medical/Surgical History Diabetic: Yes -: Diabetes mellitus type 2 -: Hypertension -: Metastatic brain cancer on radiation therapy -: Right upper lung lobectomy -: Former tobacco use -: Right upper lung lobectomy Psychosocial/ Personal History: Patient is . Lives at home. - Social History Alcohol use: No CD- Drugs: No Caffeine use: No Place of Residence: Home Review of Systems General: Weakness Neurological: Other (weakness on the left side improved) Physical Examination Temp Pulse Resp BP Pulse Ox 97.6 F 67 17 132/63 95 10/01/21 12:46 10/01/21 12:46 10/01/21 12:46 10/01/21 12:46 10/01/21 12:46 General: Alert, In no apparent distress, Oriented x3 Neck: Supple Respiratory: Clear to auscultation bilaterally Cardiovascular: No edema, Regular rate/rhythm Gastrointestinal: Normal bowel sounds, Soft and benign - Problems (1) Altered mental status Current Visit: Yes Status: Acute Plan: Age 85 aW AMS. Doign well now CT sches Poss RLl infiltrate, Volume loss and pleural thickening. Renal fucntion improving. DC DEBBIE andinc PO fluids at home. Doiubt sepsis/ MRI intracranial mets Pt is on steroids Doubt sepsis . poss pneumonia Agree with discharge on AB/ Avoid Debbie at home Qualifiers: Altered mental status type: delirium Qualified Code(s): R41.0 - Disorientation, unspecified
[2021-10-01 16:37] VITALS: BP 129/61; TEMP 97.5
[2021-10-01 16:43] VITALS: O2SAT 97
--- NOTE | 2021-10-04 12:57 | CON ---
Date of Consultation: 10/01/2021 The patient was admitted to Dr. Torres on 09/30/2021. Reason For Consultation: Elevated troponin. History Of Present Illness: Mr. Vela is an 85-year-old has had a history of metastatic brain cance r from the lung primary, his sternal radiation therapy, and has a history of chronic renal disease. Has had came in with a complex pleural effusion and pneumonia. Troponin was elevated. I was consult ed. The patient was also a diabetic. He denied any chest pain or syncope or palpitation without any fever or chills or cough. Past Medical History: As stated above. Allergies: NONE. Review of Systems: Negative. Social History: Negative. Family History: Noncontributory. Medications: Listed by Dr. Torres. Physical Examination: General: The patient appears to be in no acute distress. He appears to be alert and oriented to nam e and place. Vital Signs: Stable. He was in sinus rhythm. He is afebrile. HEENT: Negative. Neck: Supple without any bruit, lymphadenopathy, JVD, or thyromegaly. Chest: Revealed decreased breath sounds both bases. Cardiac: Revealed a regular rhythm and rate with an S4 gallops. Abdomen: Benign. Extremities: Revealed no clubbing, cyanosis, or edema. Diagnostic Data: His creatinine is 1.75. CT of his head showed a right parietal mass. Chest x-ray showed a 6 mm mass at the right apex. Troponin was 0.31. Procalcitonin was 7.30. Glucose was 263. Impression And Plan: 1.Elevated troponin secondary to demand ischemia from pneumonia and cancer and radiation therapy. E chocardiogram is pending. 2.Complex pleural effusion with a right apical mass and mets to the brain. 3.Renal insufficiency. 4.Poorly controlled diabetes. 5.Elevated procalcitonin, possibly sepsis. I would like Mr. Vela to get a 2D echocardiogram to se e what his ejection fraction is like. Otherwise, continue present regimen. NB/MODL Voice ID: [id number] Report ID: [id number]
== END 2021-10-01 16:53 | disposition home health service (06) ==
LOC: ER 09:56 → ERHOLD 16:00 → 2ND 18:02
PROVIDERS: ADMIT Family Medicine; ATTEND Family Medicine
DX: J18.9 Pneumonia, unspecified organism (principal); J91.8 Pleural effusion in other conditions classified elsewhere; R53.1 Weakness; I12.9 Hypertensive chronic kidney disease with stage 1 through stage 4 chronic kidney disease, or unspecified chronic kidney disease; E11.22 Type 2 diabetes mellitus with diabetic chronic kidney disease; N18.30 Chronic kidney disease, stage 3 unspecified; D63.1 Anemia in chronic kidney disease; E86.0 Dehydration; E87.5 Hyperkalemia; R77.8 Other specified abnormalities of plasma proteins; C71.9 Malignant neoplasm of brain, unspecified; C79.9 Secondary malignant neoplasm of unspecified site; N40.0 Benign prostatic hyperplasia without lower urinary tract symptoms; G25.0 Essential tremor; E78.5 Hyperlipidemia, unspecified; I70.0 Atherosclerosis of aorta; Z66 Do not resuscitate; Z79.899 Other long term (current) drug therapy; Z87.891 Personal history of nicotine dependence; Z90.2 Acquired absence of lung [part of]
CPT/HCPCS: 96365; 96361; 93005; 93306; 87040 ×2; 87070; 85025 ×2; 80048 ×2; 36415; 83735; 82550 ×2; 87205; 84132; 85610; 80061; 82947 ×4; 80076; 83605 ×2; 85730; 84443; 84484 ×2; 82553; 84439; 84145; 0240U; 70450; 71250; 71045; 70551; 97116; 97161; 97530; 96372; 99285; J1644 ×2; J2543 ×3; J7040; J7030 ×2; G0378 ×3; 81003; 81015; J8540